=== PATIENT | male | born 1935 | race Caucasian/White ===

== ENCOUNTER 2018-09-13 11:03 | Emergency (ER) | payer OTHER ==
--- NOTE | 2018-09-13 12:14 | ER ---
Nurse's Notes [facility] Name: Samuel Oliva Age: 83 yrs Sex: Male : 1935 Arrival Date: 09/13/2018 Time: 11:05 Bed 16 Private MD: Nico Mejias V Diagnosis: Other bursitis of elbow, right elbow;Ulnar spur Presentation: 09/13 11:21 Presenting complaint: Patient states: pain to right elbow area since last Saturday, iw denies injury but states he was using a push mower before , feels like a pulled muscle, daughter also states pt had a bout of diarrhea, pt states those symptoms have resolved. 11:22 Transition of care: patient was not received from another setting of care. Onset of iw symptoms was September 08, 2018. Risk Assessment: Do you want to hurt yourself or someone else? Patient reports no desire to harm self or others. Initial Sepsis Screen: Does the patient meet any 2 criteria? No. Patient's initial sepsis screen is negative. Does the patient have a suspected source of infection? No. Patient's initial sepsis screen is negative. Care prior to arrival: None. 11:22 Method Of Arrival: Ambulatory iw 11:22 Acuity: GIANNI 4 iw Historical: - Allergies: 11:25 No Known Allergies; iw - Home Meds: 11:25 None [Active]; iw - PSHx: 11:25 Knee surgery; Heart stents; iw - Immunization history:: Adult Immunizations not up to date. - Social history:: Smoking status: Patient/guardian denies using tobacco. - Ebola Screening: : Patient negative for fever greater than or equal to 101.5 degrees Fahrenheit, and additional compatible Ebola Virus Disease symptoms Patient denies exposure to infectious person Patient denies travel to an Ebola-affected area in the 21 days before illness onset No symptoms or risks identified at this time. Screenin:00 Abuse screen: Denies threats or abuse. Denies injuries from another. Nutritional jl7 screening: No deficits noted. Tuberculosis screening: No symptoms or risk factors identified. Fall Risk None identified. Assessment: 12:00 General: Appears in no apparent distress. uncomfortable, Behavior is calm, cooperative, jl7 appropriate for age. Pain: Complains of pain in right elbow Pain currently is 3 out of 10 on a pain scale. Pain began 1 week ago. Neuro: Level of Consciousness is awake, alert, obeys commands, Oriented to person, place, time, situation. Cardiovascular: Patient's skin is warm and dry. Respiratory: Airway is patent Respiratory effort is even, unlabored, Respiratory pattern is regular, symmetrical. GI: Patient currently denies diarrhea, nausea, vomiting. : No signs and/or symptoms were reported regarding the genitourinary system. EENT: No signs and/or symptoms were reported regarding the EENT system. Derm: Skin is pink, warm \T\ dry. Musculoskeletal: Range of motion: limited in right elbow. Vital Signs: 11:25 BP 182 / 85; Pulse 89; Resp 16; Temp 97.6; Pulse Ox 96% on R/A; Weight 83.91 kg; Height iw 5 ft. 6 in. (167.64 cm); Pain 3/10; 12:31 BP 163 / 88; Pulse 77; Resp 16 S; Pulse Ox 96% on R/A; jl7 11:25 Body Mass Index 29.86 (83.91 kg, 167.64 cm) iw ED Course: 11:05 Patient arrived in ED. as 11:06 Nico Mejias MD is Private Physician. as 11:23 Triage completed. iw 11:25 Arm band placed on. iw 11:30 [facility] snw 11:30 Alexsander Hay MD is Attending Physician. snw 11:56 Hola Burns, KLEBER is Primary Nurse. jl7 12:00 Patient has correct armband on for positive identification. Bed in low position. Call jl7 light in reach. Side rails up X 1. Pulse ox on. NIBP on. 12:04 Elbow Right 3 View XRAY In Process Unspecified. EDMS 12:12 Nico Mejias MD is Referral Physician. snw 12:32 No provider procedures requiring assistance completed. Patient did not have IV access jl7 during this emergency room visit. Administered Medications: 12:10 Drug: [place] 5 mg-325 mg 1 tabs Route: PO; jl7 12:28 Follow up: Response: No adverse reaction; Medication administered at discharge. jl7 12:10 Drug: Zofran 4 mg Route: PO; jl7 12:28 Follow up: Response: No adverse reaction; Medication administered at discharge. jl7 Outcome: 12:13 Discharge ordered by MD. boogie 12:32 Discharged to home ambulatory, with family. jl7 12:32 Condition: stable 12:32 Discharge instructions given to patient, family, Instructed on discharge instructions, follow up and referral plans. medication usage, Demonstrated understanding of instructions, follow-up care, medications, Prescriptions given X 1. 12:32 Patient left the ED. jl7 Signatures: Dispatcher [employer] EDNY Sadia Arevalo, WELLFIELD TECHNICIAN-C WELLFIELD TECHNICIAN-Lyly Roberts Irene, RN RN Hola Carnes RN RN jl7 Corrections: (The following items were deleted from the chart) 11:23 11:21 Presenting complaint: Patient states: pain to right elbow area since last Saturday roger duran
--- NOTE | 2018-09-13 12:14 | EDPHYS ---
Physician Documentation [facility] Name: Samuel Oliva Age: 83 yrs Sex: Male : 1935 Arrival Date: 09/13/2018 Time: 11:05 Bed 16 Private MD: Nico Mejias V ED Physician Alexsander Hay HPI: 09/13 11:56 This 83 yrs old Male presents to ER via Ambulatory with complaints of Arm snw Pain, Diarrhea. 11:56 The patient or guardian complains of decreased range of motion, pain, that is acute. snw The complaints affect the right elbow. Context: The problem was sustained at an unknown location, resulted from repetitive motion sweeping with push broom. Onset: The symptoms/episode began/occurred gradually, 1 week(s) ago, and became persistent. Modifying factors: The symptoms are alleviated by remaining still. Associated signs and symptoms: The patient has no apparent associated signs or symptoms. Severity of symptoms: At their worst the symptoms were moderate. The patient has experienced similar episodes in the past, multiple times. The patient has not recently seen a physician. Historical: - Allergies: 11:25 No Known Allergies; iw - Home Meds: 11:25 None [Active]; iw - PSHx: 11:25 Knee surgery; Heart stents; iw - Immunization history:: Adult Immunizations not up to date. - Social history:: Smoking status: Patient/guardian denies using tobacco. - Ebola Screening: : Patient negative for fever greater than or equal to 101.5 degrees Fahrenheit, and additional compatible Ebola Virus Disease symptoms Patient denies exposure to infectious person Patient denies travel to an Ebola-affected area in the 21 days before illness onset No symptoms or risks identified at this time. ROS: 11:56 Constitutional: Negative for fever, chills, and weight loss, Eyes: Negative for injury, snw pain, redness, and discharge, ENT: Negative for injury, pain, and discharge, Neck: Negative for injury, pain, and swelling, Cardiovascular: Negative for chest pain, palpitations, and edema, Respiratory: Negative for shortness of breath, cough, wheezing, and pleuritic chest pain, Back: Negative for injury and pain, : Negative for injury, bleeding, discharge, and swelling, Skin: Negative for injury, rash, and discoloration, Neuro: Negative for headache, weakness, numbness, tingling, and seizure, Psych: Negative for depression, anxiety, suicide ideation, homicidal ideation, and hallucinations. 11:56 Abdomen/GI: Positive for stomach virus a few weeks ago - resolved per Patient. 11:56 MS/extremity: Positive for decreased range of motion, pain, of the right elbow. Exam: 11:51 Constitutional: This is a well developed, well nourished patient who is awake, alert, snw and in no acute distress. Head/Face: Normocephalic, atraumatic. Eyes: Pupils equal round and reactive to light, extra-ocular motions intact. Lids and lashes normal. Conjunctiva and sclera are non-icteric and not injected. Cornea within normal limits. Periorbital areas with no swelling, redness, or edema. ENT: Nares patent. No nasal discharge, no septal abnormalities noted. Tympanic membranes are normal and external auditory canals are clear. Oropharynx with no redness, swelling, or masses, exudates, or evidence of obstruction, uvula midline. Mucous membranes moist. Neck: Trachea midline, no thyromegaly or masses palpated, and no cervical lymphadenopathy. Supple, full range of motion without nuchal rigidity, or vertebral point tenderness. No Meningismus. Chest/axilla: Normal chest wall appearance and motion. Nontender with no deformity. No lesions are appreciated. Cardiovascular: Regular rate and rhythm with a normal S1 and S2. No gallops, murmurs, or rubs. Normal PMI, no JVD. No pulse deficits. Respiratory: Lungs have equal breath sounds bilaterally, clear to auscultation and percussion. No rales, rhonchi or wheezes noted. No increased work of breathing, no retractions or nasal flaring. Abdomen/GI: Soft, non-tender, with normal bowel sounds. No distension or tympany. No guarding or rebound. No evidence of tenderness throughout. Back: No spinal tenderness. No costovertebral tenderness. Full range of motion. Skin: Warm, dry with normal turgor. Normal color with no rashes, no lesions, and no evidence of cellulitis. Neuro: Awake and alert, GCS 15, oriented to person, place, time, and situation. Cranial nerves II-XII grossly intact. Motor strength 5/5 in all extremities. Sensory grossly intact. Cerebellar exam normal. Normal gait. Psych: Awake, alert, with orientation to person, place and time. Behavior, mood, and affect are within normal limits. 11:51 Musculoskeletal/extremity: Extremities: grossly normal except: ROM: limited active range of motion due to pain, limited passive range of motion due to pain, Circulation is intact in all extremities. Sensation intact. Vital Signs: 11:25 BP 182 / 85; Pulse 89; Resp 16; Temp 97.6; Pulse Ox 96% on R/A; Weight 83.91 kg; Height iw 5 ft. 6 in. (167.64 cm); Pain 3/10; 12:31 BP 163 / 88; Pulse 77; Resp 16 S; Pulse Ox 96% on R/A; jl7 11:25 Body Mass Index 29.86 (83.91 kg, 167.64 cm) iw MDM: 11:30 Patient medically screened. snw 12:28 Data reviewed: vital signs, nurses notes. Data interpreted: Pulse oximetry: on room air snw is 96 %. Interpretation: acceptable. Counseling: I had a detailed discussion with the patient and/or guardian regarding: the historical points, exam findings, and any diagnostic results supporting the discharge/admit diagnosis, radiology results, the need for outpatient follow up, to return to the emergency department if symptoms worsen or persist or if there are any questions or concerns that arise at home. Special discussion: Based on the history and exam findings, there is no indication for further emergent testing or inpatient evaluation. I discussed with the patient/guardian the need to see the orthopedic surgeon for further evaluation of the symptoms. I discussed with the patient/guardian the need to see the primary care provider for further evaluation of the symptoms. 09/13 11:43 Order name: Elbow Right 3 View XRAY; Complete Time: 12:28 snw Administered Medications: 12:10 Drug: [place] 5 mg-325 mg 1 tabs Route: PO; jl7 12:28 Follow up: Response: No adverse reaction; Medication administered at discharge. jl7 12:10 Drug: Zofran 4 mg Route: PO; jl7 12:28 Follow up: Response: No adverse reaction; Medication administered at discharge. jl7 Disposition: 13:07 Co-signature as Attending Physician, Alexsander Hay MD. rn Disposition: 09/13/18 12:13 Discharged to Home. Impression: Other bursitis of elbow, right elbow, Ulnar spur. - Condition is Stable. - Discharge Instructions: Bursitis, Repetitive Strain Injuries, Heat Therapy. - Prescriptions for Voltaren 1 % Topical gel - apply 2 gram by TOPICAL route 4 times per day; 50 gram. - Medication Reconciliation Form, Thank You Letter, Antibiotic Education, Prescription Opioid Use form. - Follow up: Nico Mejias MD; When: 2 - 3 days; Reason: Recheck today's complaints, Continuance of care, Re-evaluation by your physician. Follow up: Emergency Department; When: As needed; Reason: Worsening of condition. Signatures: Dispatcher [employer] EDMS Sadia Arevalo, KYLE-C LAND MANAGEMENT FORESTER-[address], RN Alexsander Mcgrath MD MD rn Leal, Jahala, RN RN jl7 Corrections: (The following items were deleted from the chart) 12:32 12:13 09/13/2018 12:13 Discharged to Home. Impression: Other bursitis of elbow, right jl7 elbow; Ulnar spur. Condition is Stable. Forms are Medication Reconciliation Form, Thank You Letter, Antibiotic Education, Prescription Opioid Use. Follow up: Nico Mejias; When: 2 - 3 days; Reason: Recheck today's complaints, Continuance of care, Re-evaluation by your physician. Follow up: Emergency Department; When: As needed; Reason: Worsening of condition. snw
[2018-09-13] MEDS ORDERED: HYDROCODONE/APAP 5/325 MG TAB ONE (12:17)
[2018-09-13] MEDS ORDERED: ONDANSETRON 4 MG (ODT) TAB ONE (12:17)
--- NOTE | 2018-09-13 12:22 | RAD REPORT ---
EXAM DESCRIPTION: RAD - Elbow Right 3 View - 09/13/2018 12:04 pm CLINICAL HISTORY: Elbow pain FINDINGS: No fracture or dislocation seen. Large spur extends off of the olecranon. A joint effusion is present. This could be inflammatory, infectious or posttraumatic in should be co rrelated clinically
[2018-09-13 12:37] VITALS: TEMP 97.6; O2SAT 96
[2018-09-13 12:39] VITALS: BP 163/88
== END 2018-09-13 12:32 | disposition home or self-care (01) ==
LOC: ER 11:03
DX: M25.521 Pain in right elbow (principal); R19.7 Diarrhea, unspecified; M71.521 Other bursitis, not elsewhere classified, right elbow; M77.9 Enthesopathy, unspecified
CPT/HCPCS: 99284

== ENCOUNTER 2021-05-16 11:20 | Emergency (ER) | payer OTHER ==
--- OUTSIDE RECORDS SUMMARY | 2021-05-16 11:23 | XMS REPORT | Continuity of Care Document ---
:1935 Author Organization [facility] t Address [address] [place] [address] Care Team Providers Name Role Phone ANDRES, Felipe Attending Clinician Unavailable ALLIE RODNEY Attending Clinician Unavailable Andres EMERSON, A Attending Clinician Only, Test Attending Clinician Unavailable Pob, Lab Main Attending Clinician Unavailable Doctor Unassigned, Name Attending Clinician Unavailable ANDRES, Felipe Admitting Clinician Unavailable Andres EMERSON, A Admitting Clinician Payers Payer Name Policy Type Policy Number Effective Date Expiration Date S bijal MEDICARE PART A [id number] 1999 \T\ B 00:00:00 [employer] INDEMNITY [id number] 2000 00:00:00 Problems This patient has no known problems. Allergies, Adverse Reactions, Alerts Allergy Allergy Status Severity Reaction(s) Onset Inactive Treating Comm ents Source Name Type Date Date Clinician NO KNOWN Drug Active Univers ALLERGIE Class ity of S [facility] Social History Social Habit Start Date Stop Date Quantity Comments Source Exposure to Not sure [facility] SARS-CoV-2 (event) Medica l Branch Tobacco use and 2020-06-16 2020-06-16 Never used [facility] exposure 00:00:00 00:00:00 Medical [place] Sex Assigned At [birth year] [facility] 00:00:00 00:00:00 Medical Branch Smoking Status Start Date Stop Date Source Unknown if ever smoked [facility] Never smoker [facility] Medications Ordered Filled Start Stop Current Ordering Indication Dosage Frequency Signature Comments Components Source Medication Medication Date Date Medication? Clinician (SIG) Name Name hydralAZINE 2020- No 10mg 10 mg, Uni vers (APRESOLINE 3-03 03- Slow IV ity of ) injection 19:00[place] 17[place] 10 [place] 00 :00 ONCE, 1 Medical dose, [facility] 07/20/20 at 1300, STAT, PACU
In dication: Hypertensi ve Emergency in atorvastati Yes Take by Un damien n calcium 3-03 mouth. ity of (LIPITOR 18:28: [place] ORAL) [address] [place] [address] LISINOPRIL Yes Take by Uni vers ORAL 3-03 mouth. ity of 18:28: [address] aspirin 81 Yes 81mg Take 81 mg U nivers mg chewable 03 by mouth ity of tablet 18:28: daily. [address] atorvastati Yes Take by Un damien n calcium 3-03 mouth. ity of (LIPITOR 18:28: [place] ORAL) [address] [place] [address] LISINOPRIL Yes Take by Uni vers ORAL 3-03 mouth. ity of 18:28: [address] aspirin 81 Yes 81mg Take 81 mg U nivers mg chewable -03 by mouth ity of tablet 18:28: daily. [address] water for Yes PRN, Univers irrigation 3-03 Starting ity o f irrigation 17:19: Sat07/20/20 [place] solution 00 at 1119, Medical Until [place] Discontinu ed, Routine, Intra-op sodium Yes PRN, Univers chloride 3-03 Starting ity of (NS) 17:19: Sat07/20/20 [place] injection 00 at 1119, Medica l Until Branch Discontinu ed, Routine, Intra-op neomycin-po Yes PRN, Univer s lymyxin-dex 3-03 Starting ity of amethasone 17:19: Sat07/20/20 [place] (MAXITROL) 00 at 1119, Medic al 3.5 Until [place] mg/g-10,000 Discontinu unit/g-0.1 ed, % Routine, ophthalmic Intra-op ointment gentamicin Yes PRN, Univers injection -03 Starting ity of 17:18: Sat07/20/20 [place] 00 at 1118, Medical Until Branch Discontinu ed, MIMI, Intra-op EPINEPHrine Yes PRN, Univer s 1:1,000 (1 07-20 Starting ity o f mg/mL) 17:18: Sat07/20/20 [place] (ADRENALIN) 00 at 1118, Medi abdias injection Until Branch Discontinu ed, Routine, Intra-op DUOVISC Yes PRN, Univers (DUOVISC 07-20 Starting ity of VISCO 17:18: Sat07/20/20 [place] ELASTIC) 3 00 at 1118, Medic al %-4 %(0.5 Until Branch mL) 1 % Discontinu (0.55 mL) ed, intraocular Routine, injection Intra-op dexamethaso Yes PRN, Univer s ne 07-20 Starting ity of (DECADRON 17:18: Sat07/20/20 [place] PHOSPHATE) 00 at 1118, Medic al injection Until Branch Discontinu ed, Routine, Intra-op ceFAZolin Yes PRN, Univers (ANCEF) 07-20 Starting ity of injection 17:16: Sat07/20/[place] 00 [place] 1116, Medical Until Branch Discontinu ed, MIMI, Intra-op carbachoL Yes PRN, Univers (MIOSTAT) 303 Starting ity of 0.01 % 17:16: Sat07/20/20 [place] intraocular 00 at 1116, Medi abdias injection Until Branch Discontinu ed, Routine, Intra-op balanced Yes PRN, Univers salt irrig 03 Starting ity o f soln comb1 17:16: Sat07/20/20 [place] (BSS PLUS) 00 at 1116, Medic al ophthalmic Until Branch solution Discontinu 500 mL bag ed, Routine, Intra-op Hyaluronida Yes PRN, Univer s se, Human 303 Starting ity of Recomb. 17:04: Sat07/20/20 [place] (HYLENEX) 00 at 1104, Medica l injection Until Branch Discontinu ed, Routine, Intra-op eye block 2021-0 Yes PRN, Univers syringe 11 3-03 Starting ity o f mL 17:04: 07/20/20 [place] 00 at 1104, Medical Until Branch Discontinu ed, Intra-op mydriatic 2020- No .5mL 0.5 mL, Univ ers #5 07-20 Left Eye, ity of ophthalmic 15:45: 15:58 ONCE, 1 [place] solution 00 :00 dose, [facility] Medica l 0.5 mL 07/20/20 at [place] syringe 0945, Routine, DSU Pre-op lactated 2020- No 1000mL at 42 [facility] rs ringers IV 07-20 0303 mL/hr, ity of infusion 15:45: 15:58 1,000 mL, [place] 1,000 mL 00 :00 IV Medical Infusion, [place] ONCE, 1 dose, 07/20/20 at 0945, Routine, DSU Pre-op aspirin 81 Yes 81mg Take 81 mg U nivers mg chewable 27 by mouth ity of tablet 19:31: daily. [address] atorvastati Yes Take by Un damien n calcium 27 mouth. ity of (LIPITOR 19:31: [address] LISINOPRIL Yes Take by Uni vers ORAL 06-15 mouth. ity of 19:31: [address] lactated Yes 1000mL at 42 [facility] s ringers IV 1-27 mL/hr, ity of infusion 16:45: 1,000 [place] 1,000 mL 00 IV Medical Infusion, [place] CONTINUOUS , Starting 06/15/20 at 1045, Until Discontinu ed, Routine, PACU neomycin-po Yes PRN, [facility] lymyxin-dex 06-15 Starting ity of amethasone 16:26: Sat [place] (MAXITROL) 06/15/20 at [facility] 35 [address] mg/g-10,000 Until unit/g-0.1 Discontinu % ed, ophthalmic Routine, ointment Intra-op gentamicin 0 Yes PRN, Univers injection 06-15 Starting ity of 16:25: Wed [place] 06/15/20 at [facility] 1025, Branch Until Discontinu ed, MIMI, Intra-op dexamethaso Yes PRN, Univer s ne 06-15 Starting ity of (DECADRON 16:25: Sat [place] PHOSPHATE) 06/15/20 at [facility] ical injection 1025, Branch Until Discontinu ed, Routine, Intra-op ceFAZolin Yes PRN, Univers (ANCEF) 06-15 Starting ity of injection 16:25: Sat06/15/20 at [facility] 1025, Branch Until Discontinu ed, MIMI, Intra-op water for Yes PRN, Univers irrigation 06-15 Starting ity o f irrigation 16:22: Sat [place] solution 06/15/20 at [facility] al 1022, Branch Until Discontinu ed, Routine, Intra-op sodium Yes PRN, Univers chloride 06-15 Starting ity of (NS) 16:22: Sat [place] injection 06/15/20 at [facility] 1022, Branch Until Discontinu ed, Routine, Intra-op eye block Yes PRN, Univers syringe 11 06-15 Starting ity o f mL 16:20: Sat [place] 00 06/15/20 at [facility] 1020, Branch Until Discontinu ed, Intra-op EPINEPHrine Yes PRN, Univer s 1:1,000 (1 06-15 Starting ity o f mg/mL) 16:20: Sat [place] (ADRENALIN) 00 06/15/20 at Ut dical injection 1020, Branch Until Discontinu ed, Routine, Intra-op DUOVISC Yes PRN, Univers (DUOVISC 06-15 Starting ity of VISCO 16:20: Sat [place] ELASTIC) 3 00 06/15/20 at [facility] ical %-4 %(0.5 1020, Branch mL) 1 % Until (0.55 mL) Discontinu intraocular ed, injection Routine, Intra-op carbachoL Yes PRN, Univers (MIOSTAT) 06-15 Starting ity of 0.01 % 16:19: Sat [place] intraocular 00 06/15/20 at Ut dical injection 1019, Branch Until Discontinu ed, Routine, Intra-op balanced Yes PRN, Univers salt irrig 06-15 Starting ity o f soln comb1 16:19: Sat (BSS PLUS) 00 06/15/20 at Med ical ophthalmic 1019, Branch solution Until 500 mL bag Discontinu ed, Routine, Intra-op Hyaluronida 2020- Yes PRN, [place] s se, Human 06-15 Starting ity of Recomb. 16:05: Sat [place] (HYLENEX) 06/15/20 at [facility] abdias injection 1005, Branch Until Discontinu ed, Routine, Intra-op Vital Signs Vital Name Observation Time Observation Value Comments Source Systolic blood 2020-07-20 18:09:00 186 mm[Hg] Univer sity of [facility] Diastolic blood 2020-07-20 18:09:00 82 mm[Hg] Unive rsity of [facility] Heart rate 2020-07-20 18:09:00 59 /min Universi ty [facility] Respiratory rate 2020-07-20 18:09:00 16 /min [facility] Oxygen saturation in 2020-07-20 18:09:00 98 /min University of Arterial blood by [facility] Pulse oximetry Branch Body temperature 2020-07-20 17:37:00 36.33 Karyn [facility] [place] [facility] Body height 2020-07-13 15:40:00 167.6 cm [facility] Body weight 2020-07-13 15:40:[address] [facility] BMI 2020-07-13 15:40:00 30.69 kg/m2 [facility] Systolic blood 2020-06-15 16:53:00 189 mm[Hg] Univer sity of [facility] Branch Diastolic blood 2020-06-15 16:53:00 79 mm[Hg] Unive rsity of [facility] Heart rate 2020-06-15 16:53:00 56 /min [facility] Respiratory rate 2020-06-15 16:53:00 16 /min [facility] [place] [facility] Oxygen saturation in 2020-06-15 16:53:00 95 /min University of Arterial blood by [facility] Pulse oximetry Branch Body temperature 2020-06-15 16:39:00 36.11 Karyn [facility] [place] [facility] Body height 2020-06-14 18:30:[address] [facility] Body weight 2020-06-14 18:30:[address] [facility] BMI 2020-06-14 18:30:00 30.67 kg/m2 [facility] Procedures Procedure Date / Time Performing Clinician Source Performed COVID-19 (ID NOW RAPID 2020-07-18 18:31:00 Aristides Lai Un [facility] TESTING) Medical Branch LAB ONLY COVID 2020-07-18 18:31:00 Aristides Lai [facility] INTERPRETATION [facility] Branch CONSENT/REFUSAL FOR 2020-07-18 18:02:39 [facility] DIAGNOSIS AND TREATMENT [place] [facility] ASSIGNMENT OF BENEFITS 2020-07-18 18:02:20 [facility] [place] [facility] ASSIGNMENT OF BENEFITS 2020-06-10 17:09:52 [facility] [place] [facility] Encounters Start End Encounter Admission Attending Care Care Encounter Source Date/Time Date/Time Type Type Clinicians Facility Department ID 2021-03-19 [id number] Univers 01:01:18 ARISTIDES [facility] [place] [facility] 2021-03-18 [facility] [id number] Univers 22:32:06 [facility] 2021-03-18 [facility] [id number] Univers 18:51:57 [facility] 2020-10-12 2020-10-12 Outpatient HERNAN RODNEY [facility] [id number] [facility] 08:53:00 11:45:00 JOEL 2020-09-07 2020-09-07 [facility] [id number] Univers 09:00:00 09:00:00 ARISTIDES [id number] [facility] 2020-09-07 2020-09-07 [facility] [id number] Univers 00:00:00 00:00:00 ARISTIDES [facility] [place] [facility] 2020-07-20 2020-07-20 Hospital [facility] [id number] Univers 09:23:00 12:27:00 Encounter Aristides Baker [id number] ity [place] [id number] [place] [id number] [address] 2020-07-18 2020-07-18 Laboratory Only, Adc Test [facility] [id number] Univers 12:03:41 12:18:41 Only Aristides Lai [id number] 0 [id number] [id number] [address] 2020-07-18 2020-07-18 Outpatient R [facility] [id number] Univers 10:15:00 10:15:00 [id number] [facility] [place] [facility] 2020-07-18 2020-07-18 [facility] [id number] Univers 10:15:00 10:15:00 ARISTIDES [facility] [place] [facility] 2020-07-04 2020-07-04 [facility] [id number] Univers 09:15:00 09:15:00 ARISTIDES [facility] [place] [facility] 2020-06-15 2020-06-15 [facility] [id number] Univers 07:58:00 11:27:00 Encounter Aristides Baker [id number] [id number] [id number] [address] 2020-06-14 2020-06-14 Laboratory Only, Adc Test [facility] [id number] Univers 08:57:56 09:12:56 Only Aristides Lai [id number] 0 [id number] [place] [id number] [address] 2020-06-14 2020-06-14 Outpatient R ANDRES [facility] [id number] Univers 09:00:00 09:00:00 ARISTIDES [id number] [facility] [place] [facility] 2020-06-14 2020-06-14 [facility] [id number] Univers 09:00:00 09:00:[address] [facility] 2020-06-10 2020-06-10 Vacuum Caster Cecilia, Zo Lab Main [facility] [id number] [facility] 11:09:43 11:24:43 Visit AndresAristides Mutual [id number] 0 ity [place] [id number] [place] [id number] Ut dical [address] 2020-06-10 2020-06-10 Outpatient R ANDRES [facility] [id number] [facility] 10:15:00 10:15:[address] [facility] 2020-06-10 2020-06-10 Orders Doctor THONG [id number] 90 [facility] 00:00:00 00:00:00 Only Unassigned, MAHESH [id number] [place] [facility] [id number] [place] [id number] [address] Results Test Description Test Time Test Comments Results Result Sour e Comments LAB ONLY COVID COVID DMT [facility] 3 [place]Inte [place] Medical 21:11:00 rpretation/Recomme Branch ndations: Molecular NAAT Tests for Active Infection with the SARS-CoV-2 Virus: The patient has currently tested negative for the SARS-CoV-2 virus that causes COVID-19 illness. This most likely indicates that the patient does not have an active infection with the SARS-CoV-2 virus. However, infection is not completely ruled out as the false negative rate for molecular NAAT testing using a nasopharyngeal sample can be up to 30%, mostly dependent on the timing of sample collection in relation to illness onset and any deficiencies in sampling techniques. If the patient has symptoms concerning for COVID-19 illness, a repeat NAAT test (PCR, Rapid ID Now, etc.) should be performed, at which time the SARS-CoV-2 virus - if present - may have reached a detectable viral load (usually peaking by the end of the first week of symptoms). Tests for IgM and/or IgG Antibodies to the SARS-CoV-2 Virus: If the patient develops COVID-19 illness in the future, testing for IgM and IgG antibodies approximately 3 weeks after illness onset will likely indicate if the patient has produced antibodies to the SARS-CoV-2 virus. However, some patients may take longer to develop detectable antibodies, while some patients who were infected with SARS-CoV-2 may never develop antibodies. While antibodies to SARS-CoV-2 may provide some degree of immunity, at this time the strength and duration of the antibody response is unknown. Interpretation Result Comments:These interpretation comments are based upon all COVID-19 testing the patient has had at [facility], including molecular NAAT testing (more commonly known as PCR testing and Rapid ID Now testing) and antibody testing. It does not take into account any testing that a patient has had outside of the [facility] medical record. [facility] LABORATORY SERVICESCOVID [id number] Rapid ID NOW (no units) ? ? Date ? Value ? 07/18/2020 ? Not Detected ? ? ? 06/14/2020 ? Not Detected ? [facility] LABORATORY SERVICES COVID-19 (ID NOW RAPID TESTING) 2020-07-18 18:53:00 Test Item Value Reference Range Interpretation Comme nts SARS-CoV-2 Rapid ID NOW (test code Not Detected Not Detected = 03762-0) CARYN (test code = ACRYN) ID NOW COVID-19 Assay is an isothermal nucleic acid amplification test intended for the qualitative detection of nucleic acid from SARS-CoV-2 viral RNA in nasopharyngeal (CAMERA REPAIR TECHNICIAN) specimens. It is used under Emergency Use Authorization (EUA) by FDA. The limit of detection (LOD) of the assay is 125 Genome Equivalents/mL. A positive result is indicative of the presence of SARS-CoV-2 RNA. ?Clinical correlation with patient history and other diagnostic information is necessary to determine patient infection status. A negative (Not Detected) result does not preclude SARS-CoV-2 infection. In patients with clinical symptoms and other tests that are consistent with SARS-CoV-2 infection, negative results should be treated as presumptive negative and a new specimen should be tested with alternative PCR molecular test. Invalid: Please collect a new specimen for repeat patient testing if clinically indicated. Lab Interpretation (test code = Normal 07601-9) [facility]
--- NOTE | 2021-05-16 12:26 | RAD REPORT ---
EXAM DESCRIPTION: RAD - Chest Single View - 05/16/2021 12:00 pm CLINICAL HISTORY: CHEST PAIN Chest pain. COMPARISON: Chest Pa And Lat (2 Views) dated 09/05/2020; CHEST SINGLE VIEW dated 07/17/2015; CHEST SIN GLE VIEW dated 07/16/2015; CHEST SINGLE VIEW dated 06/27/2012 FINDINGS: Portable technique limits examination quality. The lungs are grossly clear. The heart is mildly enlarged in size. No displaced fractures. IMPRESSION: No acute intrathoracic process suspected.
[2021-05-16 12:31] LABS: Absolute Lymphocytes (CBC) 1.2 K/uL (0.7-4.9); Hematocrit 42.3 % (39.6-49.0); Lymphocytes % 14.6 % (15.3-44.8); MPV 7.8 fL (7.6-11.3); Protime INR 1.01; RBC Red Blood Cell Count 4.82 M/uL (4.33-5.43)
[2021-05-16 12:49] LABS: Albumin 3.2 g/dL (3.4-5.0); Bilirubin Direct 0.1 mg/dL (0-0.2); Bilirubin Total 0.4 mg/dL (0.2-1.0); Magnesium 2.1 mg/dL (1.8-2.4); Potassium 3.8 mmol/L (3.5-5.1); Protein, Total 7.4 g/dL (6.4-8.2); Troponin (Emerg Dept Use Only) 0.12 ng/mL (0.0-0.045)
--- NOTE | 2021-05-16 13:10 | EDPHYS ---
Physician Documentation [facility] Name: Samuel Oilva Age: 85 yrs Sex: Male : 1935 Arrival Date: 05/16/2021 Time: 11:31 Bed 14 Private MD: ED Physician Maldonado Ames HPI: 05/16 13:09 This 85 yrs old Male presents to ER via EMS with complaints of Chest Pain. kdr 13:10 The patient has had intermittent chest pain for the last 2 days. Yesterday evening fix kdr himself some green tea when he had a chest discomfort and the pain went away. Today he had 2 baby aspirin with the pain in his subsequently went away again. On arrival in the ED, the patient was without any pain and was otherwise stable. He stated that with the chest discomfort he had radiation into both arms, shortness of breath, nausea.. Historical: - Allergies: 11:52 No Known Allergies; ap3 - Home Meds: 11:52 None [Active]; ap3 - PMHx: 11:52 Myocardial infarction; ap3 - Immunization history:: Client reports having NOT received the Covid vaccine. - Social history:: Smoking status: Patient denies any tobacco usage or history of. ROS: 13:10 Constitutional: Negative for fever, chills, and weight loss, Eyes: Negative for injury, kdr pain, redness, and discharge, ENT: Negative for injury, pain, and discharge, Neck: Negative for injury, pain, and swelling, Respiratory: Negative for shortness of breath, cough, wheezing, and pleuritic chest pain, Abdomen/GI: Negative for abdominal pain, nausea, vomiting, diarrhea, and constipation, Back: Negative for injury and pain, : Negative for injury, bleeding, discharge, and swelling, MS/Extremity: Negative for injury and deformity, Skin: Negative for injury, rash, and discoloration, Neuro: Negative for headache, weakness, numbness, tingling, and seizure activity. Psych: Negative for depression, anxiety, suicide ideation, homicidal ideation, and hallucinations, Allergy/Immunology: Negative for hives, rash, and allergies, Endocrine: Negative for neck swelling, polydipsia, polyuria, polyphagia, and marked weight changes, Hematologic/Lymphatic: Negative for swollen nodes, abnormal bleeding, and unusual bruising. 13:10 Cardiovascular: Positive for chest pain, Negative for edema, orthopnea, palpitations, paroxysmal nocturnal dyspnea. Exam: 11:43 ECG was reviewed by the Attending Physician. kdr 13:10 Constitutional: This is a well developed, well nourished patient who is awake, alert, kdr and in no acute distress. Head/Face: Normocephalic, atraumatic. Eyes: Pupils equal round and reactive to light, extra-ocular motions intact. Lids and lashes normal. Conjunctiva and sclera are non-icteric and not injected. Cornea within normal limits. Periorbital areas with no swelling, redness, or edema. Neck: Trachea midline, no thyromegaly or masses palpated, and no cervical lymphadenopathy. Supple, full range of motion without nuchal rigidity, or vertebral point tenderness. No Meningismus. Chest/axilla: Normal chest wall appearance and motion. Nontender with no deformity. No lesions are appreciated. Cardiovascular: Regular rate and rhythm with a normal S1 and S2. No gallops, murmurs, or rubs. Normal PMI, no JVD. No pulse deficits. Respiratory: Lungs have equal breath sounds bilaterally, clear to auscultation and percussion. No rales, rhonchi or wheezes noted. No increased work of breathing, no retractions or nasal flaring. Abdomen/GI: Soft, non-tender, with normal bowel sounds. No distension or tympany. No guarding or rebound. No evidence of tenderness throughout. Back: No spinal tenderness. No costovertebral tenderness. Full range of motion. Skin: Warm, dry with normal turgor. Normal color with no rashes, no lesions, and no evidence of cellulitis. MS/ Extremity: Pulses equal, no cyanosis. Neurovascular intact. Full, normal range of motion. Neuro: Awake and alert, GCS 15, oriented to person, place, time, and situation. Cranial nerves II-XII grossly intact. Motor strength 5/5 in all extremities. Sensory grossly intact. Cerebellar exam normal. Normal gait. Psych: Awake, alert, with orientation to person, place and time. Behavior, mood, and affect are within normal limits. Vital Signs: 11:51 BP 161 / 90; Pulse 85; Resp 17; Temp 98.3(O); Pulse Ox 99% on R/A; Weight 86.18 kg; ap3 Height 5 ft. 6 in. (167.64 cm); Pain 2/10; 12:38 BP 146 / 81; Pulse 76; Pulse Ox 96% on R/A; ap3 14:05 BP 144 / 79; Pulse 64; Resp 17; Pulse Ox 94% on R/A; Pain 0/10; ap3 15:25 BP 146 / 89; Pulse 58; Pulse Ox 95% on R/A; ap3 17:57 BP 198 / 98; Pulse 74; Resp 18; Temp 98.6; Pulse Ox 98% on R/A; tm3 19:36 BP 215 / 87; Pulse 74; Resp 18; Pulse Ox 93% ; sm5 11:51 Body Mass Index 30.67 (86.18 kg, 167.64 cm) ap3 MDM: 13:09 Patient medically screened. kdr 13:10 Data reviewed: vital signs, nurses notes, lab test result(s), radiologic studies. kdr Counseling: I had a detailed discussion with the patient and/or guardian regarding: the historical points, exam findings, and any diagnostic results supporting the discharge/admit diagnosis, lab results, radiology results, the need for further work-up and treatment in the hospital. 05/16 11:34 Order name: Basic Metabolic Panel; Complete Time: 13:11 kdr 05/16 11:34 Order name: CBC with Diff; Complete Time: 13:12 kdr 05/16 11:34 Order name: LFT's; Complete Time: 13:12 kdr 05/16 11:34 Order name: Magnesium; Complete Time: 13:12 kdr 05/16 11:34 Order name: NT PRO-BNP; Complete Time: 13:12 kdr 05/16 11:34 Order name: PT-INR; Complete Time: 13:12 kdr 05/16 11:34 Order name: Troponin (emerg Dept Use Only); Complete Time: 13:12 kdr 05/16 11:34 Order name: XRAY Chest (1 view); Complete Time: 13:12 kdr 05/16 11:34 Order name: EKG; Complete Time: 11:35 kdr 05/16 13:15 Order name: Troponin (emerg Dept Use Only) kdr 05/16 13:16 Order name: Troponin (Emerg Dept Use Only); Complete Time: 15:28 EDMS 05/16 15:11 Order name: COVID-19 SARS RT PCR (Document "Date of Onset" if Symptomatic); Complete dh4 Time: 18:20 05/16 11:34 Order name: Cardiac monitoring; Complete Time: 11:39 kdr 05/16 11:34 Order name: EKG - Nurse/Tech; Complete Time: 11:39 kdr 05/16 11:34 Order name: IV Saline Lock; Complete Time: 11:39 kdr 05/16 11:34 Order name: Labs collected and sent; Complete Time: 12:11 kdr 05/16 11:34 Order name: O2 Per Protocol; Complete Time: 11:39 kdr 05/16 11:34 Order name: O2 Sat Monitoring; Complete Time: 11:39 kdr EC:43 Rate is 88 beats/min. Rhythm is regular, Sinus Rhythm with No ectopy. QRS Emerson is kdr Normal. NH interval is normal. QRS interval is normal. QT interval is normal. Clinical impression: NSR w/ Non-specific ST/T Changes. Administered Medications: 13:26 Not Given (Physician Discretion): Aspirin Chewable Tablet 324 mg PO once; 81 mg tablets ap3 x 4 13:33 Drug: Lovenox (enoxaparin) 1 mg/kg Route: Sub-Q; Site: abdomen; ap3 13:54 Follow up: Response: No adverse reaction ap3 Disposition Summary: 05/16/21 15:31 Transfer Ordered Transfer Location: [facility] kdr Reason: Higher level of care kdr Condition: Fair(05/16/21 15:31) kdr Problem: new(05/16/21 15:31) kdr Symptoms: have improved(05/16/21 15:31) kdr Accepting Physician: Brittany(05/16/21 19:58) 5 Diagnosis - Subsequent non-ST elevation (NSTEMI) myocardial infarction(05/16/21 15:31) kdr - Chest pain, unspecified(05/16/21 15:31) kdr Forms: - Medication Reconciliation Form kdr - SBAR form kdr Signatures: Dispatcher [employer] EDMS Maldonado Ames MD MD kdr Sheila Ly RN RN ap3 Yajaira Richmond RN RN sm5 Corrections: (The following items were deleted from the chart) 15:30 13:09 Inpatient Admission kdr kdr 15:30 13:09 Nico Mejias kdr kdr 15:30 13:09 Telemetry/MedSurg (Inpatient) kdr kdr 15:30 13:09 Fair kdr kdr 15:30 13:09 new kdr kdr 15:30 13:09 are resolved kdr kdr 15:30 13:09 Standard kdr kdr 15:30 13:09 kdr kdr 15:30 13:09 Subsequent non-ST elevation (NSTEMI) myocardial infarction kdr kdr 15:30 13:09 Chest pain, unspecified kdr kdr 15:31 15:31 Brittany kdr kdr 19:58 15:31 Brittany kdr sm5
--- NOTE | 2021-05-16 13:10 | ER ---
Nurse's Notes [facility] Name: Samuel Oliva Age: 85 yrs Sex: Male : 1935 Arrival Date: 05/16/2021 Time: 11:31 Bed 14 Private MD: Diagnosis: Subsequent non-ST elevation (NSTEMI) myocardial infarction;Chest pain, unspecified Presentation: 05/16 11:39 Chief complaint: EMS states: they were called out for a patient with chest pain. ap3 Patient reports that the pain isn't as severe as it was yesterday, but it is just not going away. Coronavirus screen: At this time, the client does not indicate any symptoms associated with coronavirus-19. Ebola Screen: No symptoms or risks identified at this time. Initial Sepsis Screen: Does the patient meet any 2 criteria? No. Patient's initial sepsis screen is negative. Does the patient have a suspected source of infection? No. Patient's initial sepsis screen is negative. Risk Assessment: Do you want to hurt yourself or someone else? Patient reports no desire to harm self or others. Onset of symptoms was May 16, 2021. 11:39 Method Of Arrival: EMS: [facility] ap3 11:51 Care prior to arrival: Medication(s) given: ASA, 325 mg, Nitroglycerin, x 3, zofran 4 ap3 mg. 11:51 Acuity: GIANNI 3 ap3 Triage Assessment: 11:42 General: Appears uncomfortable, Behavior is calm, cooperative. Pain: Complains of pain ap3 in chest Pain does not radiate. Pain currently is 4 out of 10 on a pain scale. Pain began 1 day ago. Also complains of nausea. Neuro: Level of Consciousness is awake, alert, obeys commands, Oriented to person, place, time, situation, Appropriate for age Speech is normal. Cardiovascular: Reports chest pain, nausea, Patient's skin is warm and dry. Respiratory: Airway is patent Respiratory effort is even, unlabored, Respiratory pattern is regular, symmetrical. Historical: - Allergies: 11:52 No Known Allergies; ap3 - Home Meds: 11:52 None [Active]; ap3 - PMHx: 11:52 Myocardial infarction; ap3 - Immunization history:: Client reports having NOT received the Covid vaccine. - Social history:: Smoking status: Patient denies any tobacco usage or history of. Screenin:53 Abuse screen: Denies threats or abuse. Nutritional screening: No deficits noted. ap3 Tuberculosis screening: No symptoms or risk factors identified. Fall Risk No fall in past 12 months (0 pts). No secondary diagnosis (0 pts). IV access (20 points). Ambulatory Aid- None/Bed Rest/Nurse Assist (0 pts). Gait- Weak (10 pts.). Mental Status- Oriented to own ability (0 pts). Total Dangelo Fall Scale indicates Low Risk Score (25-44 pts). Fall prevention measures have been instituted. Side Rails Up X 2 Placed close to Nursing Station Frequent Obs/Assesments occuring Family Present and informed to notify staff if they need to leave bedside As available Patient and Family Educated on Fall Prevention Program and strategies. Assessment: 14:05 Reassessment: Patient and/or family updated on plan of care and expected duration. Pain ap3 level reassessed. Patient is alert, oriented x 3, equal unlabored respirations, skin warm/dry/pink. Patient states symptoms have improved. 15:25 Reassessment: No changes from previously documented assessment. Patient and/or family ap3 updated on plan of care and expected duration. Pain level reassessed. 19:53 General: Appears in no apparent distress. Behavior is calm, cooperative. Pain: Denies sm5 pain. Pain:. Neuro: No deficits noted. Level of Consciousness is awake, alert, Oriented to person, place, time, situation. Cardiovascular: No deficits noted. Capillary refill < 3 seconds Patient's skin is warm and dry. Respiratory: No deficits noted. Airway is patent Trachea midline Respiratory effort is even, unlabored. Vital Signs: 11:51 BP 161 / 90; Pulse 85; Resp 17; Temp 98.3(O); Pulse Ox 99% on R/A; Weight 86.18 kg; ap3 Height 5 ft. 6 in. (167.64 cm); Pain 2/10; 12:38 BP 146 / 81; Pulse 76; Pulse Ox 96% on R/A; ap3 14:05 BP 144 / 79; Pulse 64; Resp 17; Pulse Ox 94% on R/A; Pain 0/10; ap3 15:25 BP 146 / 89; Pulse 58; Pulse Ox 95% on R/A; ap3 17:57 BP 198 / 98; Pulse 74; Resp 18; Temp 98.6; Pulse Ox 98% on R/A; tm3 19:36 BP 215 / 87; Pulse 74; Resp 18; Pulse Ox 93% ; sm5 11:51 Body Mass Index 30.67 (86.18 kg, 167.64 cm) ap3 ED Course: 11:31 Patient arrived in ED. ds1 11:33 Maldonado Ames MD is Attending Physician. kdr 11:39 Sheila Ly RN is Primary Nurse. ap3 11:43 Maintain EMS IV. Dressing intact. Good blood return noted. Site clean \T\ dry. Gauge \T\ ap 3 site: 20g. Patient maintains SpO2 saturation greater than 95% on room air. 11:44 Patient has correct armband on for positive identification. Bed in low position. Call ap3 light in reach. Side rails up X2. Adult w/ patient. regulatory product manager on. Pulse ox on. NIBP on. Door closed. Noise minimized. 11:52 Triage completed. ap3 11:53 Arm band placed on right wrist. EKG completed in triage. Results shown to MD. ap3 12:00 XRAY Chest (1 view) In Process Unspecified. EDMS 12:12 Inserted saline lock: 20 gauge in left antecubital area, using aseptic technique. Blood ap3 collected. 12:13 Pt visited by son. ap3 13:08 Nico Mejias MD is Hospitalizing Provider. kdr 13:53 Repeat lab(s) drawn. by me, sent to lab. ap3 15:24 COVID swab sent to lab. ap3 16:49 No provider procedures requiring assistance completed. Patient transferred, IV remains ll1 in place. Administered Medications: 13:26 Not Given (Physician Discretion): Aspirin Chewable Tablet 324 mg PO once; 81 mg tablets ap3 x 4 13:33 Drug: Lovenox (enoxaparin) 1 mg/kg Route: Sub-Q; Site: abdomen; ap3 13:54 Follow up: Response: No adverse reaction ap3 Outcome: 13:09 Decision to Hospitalize by Provider. kdr 15:31 ER care complete, transfer ordered by . kdr 16:50 Transferred to [facility], Transfer form completed. Note: report ll1 given to Darling Barboza RN. 16:50 Condition: stable 19:58 Patient left the ED. sm5 Signatures: Dispatcher [employer] EDMS Sharan Fry3 Maldonado Ames MD MD kdr Sanford, Demi ds1 Prokisch, Amanda RN RN ap3 Edy Cuellar RN RN ll1 Yajaira Richmond RN RN 5
[2021-05-16] MEDS ORDERED: ENOXAPARIN 100 MG/ML SYR SQ ONE (13:29)
[2021-05-16 20:10] VITALS: TEMP 98.6
[2021-05-16 20:12] VITALS: BP 215/87; O2SAT 93
== END 2021-05-16 19:58 | disposition short-term general hospital (02) ==
LOC: ER 11:20
DX: I22.2 Subsequent non-ST elevation (NSTEMI) myocardial infarction (principal); I21.9 Acute myocardial infarction, unspecified; Z20.822 Contact with and (suspected) exposure to COVID-19
CPT/HCPCS: 93005; 85025; 80048; 36415; 83735; 85610; 80076; 84484 ×2; 83880; 71045; 96372; 99285; U0003; J1650

== ENCOUNTER 2021-07-26 11:18 | Emergency (ER) | payer OTHER ==
--- OUTSIDE RECORDS SUMMARY | 2021-07-26 11:22 | XMS REPORT | Continuity of Care Document ---
:1935 Author Organization [facility] t Address [address] [place] [address] Care Team Providers Name Role Phone Jama LAI Attending Clinician Unavailable Attending Clinician Unavailable Jerome PARKER Attending Clinician Unavailable ALLIE RODNEY Attending Clinician Unavailable Andres EMERSON, A Attending Clinician Only, Test Attending Clinician Unavailable Pob, Lab Main Attending Clinician Unavailable Doctor Unassigned, Name Attending Clinician Unavailable Jama LAI Admitting Clinician Unavailable SANTANA MALIK Admitting Clinician Unavailable Andres EMERSON, A Admitting Clinician Payers Payer Name Policy Type Policy Number Effective Date Expiration Date S bijal MEDICARE PART A [id number] 1999 \T\ B 00:00:00 [employer] INDEMNITY [id number] 2000 00:00:00 MEDICARE A B [id number] 1999 00:00:00 Problems This patient has no known problems. Allergies, Adverse Reactions, Alerts Allergy Allergy Status Severity Reaction(s) Onset Inactive Treating Comm ents Source Name Type Date Date Clinician NO KNOWN Allergy Active [facility] NO KNOWN Drug Active [facility] ALLERGIE [facility] ity of S [place] Medical [facility] Social History Social Habit Start Date Stop Date Quantity Comments Source Exposure to Not sure [facility] SARS-CoV-2 (event) Medica l Branch Tobacco use and 2020-06-16 2020-06-16 [facility]:00 Medical Branch Sex Assigned At [birth year] [facility] 00:00:00 00:00:00 [facility] Smoking Status Start Date Stop Date Source Unknown if ever smoked [facility] Never smoker [facility] Medications Ordered Filled Start Stop Current Ordering Indication Dosage Frequency Signature Comments Components Source Medication Medication Date Date Medication? Clinician (SIG) Name Name hydralAZINE No 10mg 10 mg, Uni vers (APRESOLINE 3-03 03-03 Slow IV ity of ) injection 19:00: 17:58 [place] 10 mg 00 :00 ONCE, 1 Medical dose, [facility] Branch 07/20/20 at 1300, STAT, PACU
In dication: Hypertensi ve Emergency in atorvastati Yes Take by Un damien n calcium 3-03 mouth. ity of (LIPITOR 18:28: [place] [address] LISINOPRIL Yes Take by Uni vers ORAL 3-03 mouth. ity of 18:28: [address] aspirin 81 Yes 81mg Take 81 mg U nivers mg chewable 03 by mouth ity of tablet 18:28: daily. [address] atorvastati Yes Take by Un damien n calcium 3-03 mouth. ity of (LIPITOR 18:28: [place] ORAL) [address] [place] [address] LISINOPRIL Yes Take by Uni vers ORAL 3-03 mouth. ity of 18:28: [address] aspirin 81 Yes 81mg Take 81 mg U nivers mg chewable 3-03 by mouth ity of tablet 18:28: daily. [address] water for Yes PRN, Univers irrigation 3-03 Starting ity o f irrigation 17:19: Sat07/20/20 [place] solution 00 at 1119, Medical Until Branch Discontinu ed, Routine, Intra-op sodium Yes PRN, Univers chloride 3-03 Starting ity of (NS) 17:19: Sat07/20/20 [place] injection 00 at 1119, Medica l Until Branch Discontinu ed, Routine, Intra-op neomycin-po Yes PRN, Univer s lymyxin-dex 07-20 Starting ity of amethasone 17:19: 07/20/20 [place] (MAXITROL) 00 at 1119, Medic al 3.5 Until Branch mg/g-10,000 Discontinu unit/g-0.1 ed, % Routine, ophthalmic Intra-op ointment gentamicin Yes PRN, Univers injection 07-20 Starting ity of 17:18: 07/20/20 [place] 00 at 1118, Medical Until Branch [...] Routine, Intra-op ceFAZolin Yes PRN, Univers (ANCEF) 3 Starting ity of injection 17:16: [place]/20/20 [place] 00 [place] 1116, Medical Until Branch Discontinu ed, MIMI, Intra-op carbachoL Yes PRN, Univers (MIOSTAT) 07-20 Starting ity of 0.01 % 17:16: 07/20/20 [place] intraocular 00 at 1116, Medi abdias injection Until Branch Discontinu ed, Routine, Intra-op balanced Yes PRN, Univers salt irrig 07-20 Starting ity o f soln comb1 17:16: 07/20/20 [place] (BSS PLUS) 00 at 1116, Medic al ophthalmic Until Branch solution Discontinu 500 mL bag ed, Routine, Intra-op Hyaluronida Yes PRN, Univer s se, Human 3-03 Starting ity of Recomb. 17:04: 07/20/20 [place] (HYLENEX) 00 at 1104, Medica l injection Until [place] Discontinu ed, Routine, Intra-op eye block Yes PRN, Univers syringe 11 03 Starting ity o f mL 17:04: Sat07/20/20 [place] 00 at 1104, Medical Until [place] Discontinu ed, Intra-op mydriatic 2020- No .5mL 0.5 mL, Univ ers #5 07-20 0303 Left Eye, ity of ophthalmic 15:45: 15:58 ONCE, 1 [place] solution 00 :00 dose, Sat Medica l 0.5 mL 07/20/20 at Branch syringe 0945, Routine, DSU Pre-op lactated 2020- No 1000mL at 42 Unive rs ringers IV 07-20 03-03 mL/hr, ity of infusion 15:45: 15:58 1,000 mL, [place] 1,000 mL 00 :00 IV Medical Infusion, [place] ONCE, 1 dose, 07/20/20 at 0945, Routine, DSU Pre-op aspirin 81 Yes 81mg Take 81 mg U nivers mg chewable 27 by mouth ity of tablet 19:31: daily. [address] atorvastati Yes Take by Un damien n calcium - mouth. ity of (LIPITOR 19:31: [place] [address] LISINOPRIL Yes Take by Uni vers ORAL 06-15 mouth. ity of 19:31: [address] lactated Yes 1000mL at 42 [facility] s ringers IV 1-27 mL/hr, ity of infusion 16:45: 1,000 mL, [place] 1,000 mL 00 IV Medical Infusion, [place] CONTINUOUS , Starting Sat06/15/20 at 1045, Until Discontinu ed, Routine, PACU neomycin-po Yes PRN, [facility] lymyx[facility]-dex 06-15 Starting ity of amethasone 16:26: [facility] (MAXITROL) 00 06/15/20 at [facility] ical 3.5 1026, Branch mg/g-10,000 Until unit/g-0.1 Discontinu % ed, ophthalmic Routine, ointment Intra-op gentamicin Yes PRN, Univers injection 06-15 Starting ity of 16:25: Wed [place] 00 06/15/20 at [facility] 1025, [place] Until Discontinu ed, MIMI, Intra-op dexamethaso Yes PRN, Univer s ne 06-15 Starting ity of (DECADRON 16:25: Sat PHOSPHATE) 06/15/20 at [facility] ical injection 1025, [place] Until Discontinu ed, Routine, Intra-op ceFAZolin Yes PRN, Univers (ANCEF) 06-15 Starting ity of injection 16:25: Sat06/15/20 at [facility] 1025, [place] Until Discontinu ed, MIMI, Intra-op water for Yes PRN, Univers irrigation 06-15 Starting ity o f irrigation 16:22: Sat [place] solution 06/15/20 at [facility] 1022, [place] Until Discontinu ed, Routine, Intra-op sodium Yes PRN, Univers chloride 06-15 Starting ity of (NS) 16:22: Sat [place] injection 06/15/20 at [facility] 1022, [place] Until Discontinu ed, Routine, Intra-op eye block Yes PRN, Univers syringe 11 06-15 Starting ity o f mL 16:20: Sat [place] 00 06/15/20 at [facility] 1020, [place] Until Discontinu ed, Intra-op EPINEPHrine Yes PRN, Univer s 1:1,000 (06-15 Starting ity o f mg/mL) 16:20: Sat [place] (ADRENALIN) 06/15/20 at [place] dical injection 1020, [place] Until Discontinu ed, Routine, Intra-op DUOVISC Yes PRN, Univers (DUOVISC 06-15 Starting ity of VISCO 16:20: Sat [place] ELASTIC) 3 06/15/20 at [facility] ical %-4 %(0.5 1020, Branch mL) 1 % Until (0.55 mL) Discontinu intraocular ed, injection Routine, Intra-op carbachoL Yes PRN, Univers (MIOSTAT) 06-15 Starting ity of 0.01 % 16:19: Sat [place] intraocular 00 06/15/20 at [place] dical injection 1019, Branch Until Discontinu ed, Routine, Intra-op balanced Yes PRN, Univers salt irrig 06-15 Starting ity o f soln comb1 16:19: Sat [place] (BSS PLUS) 06/15/20 at [facility] ical ophthalmic 1019, Branch solution Until 500 mL bag Discontinu ed, Routine, Intra-op Hyaluronida Yes PRN, Univer s se, Human 06-15 Starting ity of Recomb. 16:05: Sat [place] (HYLENEX) 06/15/20 at [facility] injection 1005, Branch Until Discontinu ed, Routine, Intra-op Vital Signs Vital Name Observation Time Observation Value Comments Source WEIGHT 2021-05-21 07:30:00 85.2 kg WEIGHT 2021-05-16 21:28:00 87.272 kg HEIGHT 2021-05-16 21:28:00 167.6 cm WEIGHT 2021-05-21 07:30:00 85.2 kg WEIGHT 2021-05-16 21:28:00 87.272 kg HEIGHT 2021-05-16 21:28:00 167.6 cm Systolic blood 2020-07-20 18:09:00 186 mm[Hg] [facility] 2020-07-20 18:09:00 82 mm[Hg] [facility] Heart rate 2020-07-20 18:09:00 59 /min [facility] Respiratory rate 2020-07-20 18:09:00 16 /min [facility] Oxygen saturation in 2020-07-20 18:09:00 98 /min [facility] Arterial blood by [facility] Pulse oximetry Branch Body temperature 2020-07-20 17:37:00 36.33 Karyn [facility] Body height 2020-07-13 15:40:00 167.6 cm [facility] Body weight 2020-07-13 15:40:00 86.2 kg [facility] BMI 2020-07-13 15:40:00 30.69 kg/m2 [facility] Systolic blood 2020-06-15 16:53:00 189 mm[Hg] Univer sity of pressure [facility] Diastolic blood 2020-06-15 16:53:00 79 mm[Hg] Unive rsity of pressure [facility] Heart rate 2020-06-15 16:53:00 56 /min [facility] Respiratory rate 2020-06-15 16:53:00 16 /min [facility] Oxygen saturation in 2020-06-15 16:53:00 95 /min [facility] Arterial blood by [facility] Pulse oximetry Branch Body temperature 2020-06-15 16:39:00 36.11 Karyn [facility] Body height 2020-06-14 18:30:00 167.6 cm [facility] Body weight 2020-06-14 18:30:00 86.183 kg [facility] BMI 2020-06-14 18:30:00 30.67 kg/m2 [facility] Procedures Procedure Date / Time Performing Clinician Source Performed COVID-19 (ID NOW RAPID 2020-07-18 18:31:00 Aristides Lai Un [facility] TESTING) Medical Branch LAB ONLY COVID 2020-07-18 18:31:00 Aristides Lai [facility] INTERPRETATION [facility] CONSENT/REFUSAL FOR 2020-07-18 18:02:39 Doctor Unassigned, [facility] DIAGNOSIS AND TREATMENT [place] [facility] [place] ASSIGNMENT OF BENEFITS 2020-07-18 18:02:20 [facility] [place] [facility] ASSIGNMENT OF BENEFITS 2020-06-10 17:09:52 Doctor Unassigned, [facility] [place] [facility] Encounters Start End Encounter Admission Attending Care Care Encounter Source Date/Time Date/Time Type Type Clinicians Facility Department ID 2021-03-19 Outpatient Arely LAI [facility] RABIA [id number] Univers 01:01:18 ARISTIDES [facility] 2021-03-18 Outpatient ANDRES [facility] [id number] Univers 22:32:06 ARISTIDES [facility] 2021-03-18 Outpatient Arely LAI [facility] RABIA [id number] Univers 18:51:57 ARISTIDES [facility] 2021-05-16 2021-05-21 Inpatient ER , [facility] Cardiology [id number] SLE 20:58:00 12:08:00 MALIK 2021-05-16 2021-05-16 Outpatient [facility] [id number] [facility] 00:00:00 23:59:00 Mariano Medicin tiffanie 2020-10-12 2020-10-12 Outpatient RASHAUN MHFLYNN MHBL [id number] MHBL 08:53:00 11:45:00 JOEL 2020-09-07 2020-09-07 Outpatient Arely LAI [facility] [id number] Univers 09:00:00 09:00:00 ARISTIDES [id number] [facility] 2020-09-07 2020-09-07 [facility] [id number] Univers 00:00:00 00:00:00 ARISTIDES [facility] 2020-07-20 2020-07-[address] [facility] [id number] Univers 09:23:00 12:27:00 Encounter Aristides Baker [id number] ity of [place] [id number] [facility] [id number] [facility] 071 Branch 2020-07-18 2020-07-18 Laboratory Only, Adc Test [facility] [id number] Univers 12:03:41 12:18:41 Only Aristides Lai 350.1.13.1 0 [place] [id number] [id number] [place] [address] Branch 2020-07-18 2020-07-18 Outpatient R [facility] [id number] Univers 10:15:00 10:15:00 [id number] [facility] 2020-07-18 2020-07-18 Outpatient R ANDRES [facility] [id number] Univers 10:15:00 10:15:00 ARISTIDES rogelio [facility] 2020-07-04 2020-07-04 Outpatient Arely LAI [facility] [id number] Univers 09:15:00 09:15:00 ARISTIDES [facility] 2020-06-15 2020-06-15 Hospital Andres [facility] [id number] Univers 07:58:00 11:27:00 Encounter Aristides Yun [place] [id number] [place] [id number] [place] Surgical [id number] [facility] 071 [place] 2020-06-14 2020-06-14 Laboratory Only, [facility] Test [facility] [id number] Univers 08:57:56 09:12:56 Only Aristides Lai 350.1.13.1 0 [place] 4[place]2.[place].2.686 [place] [id number] [facility] 353 [place] 2020-06-14 2020-06-14 [facility] [id number] Univers 09:00:00 09:00:00 ARISTIDES [id number] rogelio [facility] 2020-06-14 2020-06-14 [facility] [id number] Univers 09:00:00 09:00:00 ARISTIDES rogelio [facility] 2020-06-10 2020-06-10 Fitting Room Supervisor Cecilia, [facility] Lab Main [facility] 1.2.8 [id number] Univers 11:09:43 11:24:43 Visit Aristides Lai 350.1.13.1 0 [place] [id number] Profess[place] [id number] [address] 2020-06-10 2020-06-10 [facility] [id number] Univers 10:15:00 10:15:00 ARISTIDES rogelio [facility] 2020-06-10 2020-06-10 Orders Doctor THONG [id number] Univers 00:00:00 00:00:00 Only UnassignedMAHESH 350.1.13.10 ity of [place] [facility] 4.2.7.2.686 [place] [id number] [address] Results Test Description Test Time Test Comments Results Result Comments Source POCT-GLUCOSE METER 2021-05-21 06:54:18 Test Item Value Reference Range Interpretation Comme nts POC-GLUCOSE METER (BEAKER) 123 mg/dL 70-110 H : TESTED AT [facility] [address] (test code = 1538) LETTY Krishnamurthy, [address]: Director Of Media/Techni barber ID = [id number] for SABA STAPLETON BASIC METABOLIC [id number] 06:23:05 Test Item Value Reference Range Interpretation Comments SODIUM (BEAKER) 137 meq/L 136-145 (test code = 381) POTASSIUM (BEAKER) 3.8 meq/L 3.5-5.1 (test code = 379) CHLORIDE (BEAKER) 104 meq/L 98-107 (test code = 382) CO2 (BEAKER) (test 23 meq/L 22-29 code = 355) BLOOD UREA NITROGEN 20 mg/dL 7-21 (BEAKER) (test code = 354) CREATININE (BEAKER) 1.25 mg/dL 0.57-1.25 (test code = 358) GLUCOSE RANDOM 127 mg/dL 70-105 H (BEAKER) (test code = 652) CALCIUM (BEAKER) 8.9 mg/dL 8.4-10.2 (test code = 697) EGFR (BEAKER) (test 55 mL/min/1.73 ESTIMA SEAN GFR IS code = 1092) sq m NOT ACCURATE CREATININE CLEARANCE IN PREDICTING GLOMERULAR FILTRATION RATE . ESTIMATED GFR I S NOT APPLICABLE FOR DIALYSIS PATIEN TS. Director Of Media ID - PIAYA LCBC (HEMOGRAM ONLY)2021-05-21 05:33:08 Test Item Value Reference Range Interpretation Comments WHITE BLOOD CELL COUNT 9.8 K/ L 3.5-10.5 (BEAKER) (test code = 775) RED BLOOD CELL COUNT 4.65 M/ L 4.63-6.08 (BEAKER) (test code = 761) HEMOGLOBIN (BEAKER) 13.6 GM/DL 13.7-17.5 L (test code = 410) HEMATOCRIT (BEAKER) 39.9 % 40.1-51.0 L (test code = 411) MEAN CORPUSCULAR 85.8 fL 79.0-92.2 Discordant result VOLUME (BEAKER) (test compar ed to previous code = 753) result. Clinica l correlation req uired MEAN CORPUSCULAR 29.2 pg 25.7-32.2 HEMOGLOBIN (BEAKER) (test code = 751) MEAN CORPUSCULAR 34.1 GM/DL 32.3-36.5 HEMOGLOBIN CONC (BEAKER) (test code = 752) RED CELL DISTRIBUTION 13.0 % 11.6-14.4 WIDTH (BEAKER) (test code = 412) PLATELET COUNT 282 K/CU MM 150-450 (BEAKER) (test code = 756) MEAN PLATELET VOLUME 9.6 fL 9.4-12.4 (BEAKER) (test code = 754) NUCLEATED RED BLOOD 0 /100 WBC 0-0 CELLS (BEAKER) (test code = 413) POCT-GLUCOSE [id number] 21:08:02 Test Item Value Reference Range Interpretation Comments POC-GLUCOSE METER 116 mg/dL 70-110 H : TESTED A T [facility] 67 ([facility]) (test code = [facility], 1538) [address]: Director Of Media/Techni barber ID = [id number] for PAULINA HARKINS [id number] 15:55:29 Test Item Value Reference Range Interpretation Comments ACTIVATED CLOTTING TIME 333 sec : 74 -137 seconds, (BEAKER) (test code = Baseli ne: TESTED AT 441) [facility] 6720 [facility], 770 30: Director Of Media/Techni barber ID = [id number] for CHRIS LAGUERRE [id number] 15:16:02 Test Item Value Reference Range Interpretation Comments ACTIVATED CLOTTING TIME 249 sec : 74 -137 seconds, (BEAKER) (test code = Baseli ne: TESTED AT 441) [address], 770 30: Director Of Media/Techni barber ID = [id number] for [place] SEE DONALDSONCEL BASIC METABOLIC [id number] 05:24:48 Test Item Value Reference Range Interpretation Comments SODIUM (BEAKER) 141 meq/L 136-145 (test code = 381) POTASSIUM (BEAKER) 4.0 meq/L 3.5-5.1 (test code = 379) CHLORIDE (BEAKER) 107 meq/L 98-107 (test code = 382) CO2 (BEAKER) (test 26 meq/L 22-29 code = 355) BLOOD UREA NITROGEN 24 mg/dL 7-21 H (BEAKER) (test code = 354) CREATININE (BEAKER) 1.42 mg/dL 0.57-1.25 H (test code = 358) GLUCOSE RANDOM 128 mg/dL 70-105 H (BEAKER) (test code = 652) CALCIUM (BEAKER) 9.0 mg/dL 8.4-10.2 (test code = 697) EGFR (BEAKER) (test 47 mL/min/1.73 ESTIMA SEAN GFR IS code = 1092) sq m NOT ACCURATE CREATININE CLEARANCE IN PREDICTING GLOMERULAR FILTRATION RATE . ESTIMATED GFR I S NOT APPLICABLE FOR DIALYSIS PATIEN TS. Director Of Media ID - FARHAD MCBC W/PLT COUNT & AUTO [id number] 04:57:30 Test Item Value Reference Range Interpretation Comments WHITE BLOOD CELL COUNT (BEAKER) 9.4 K/ L 3.5-10.5 (test code = 775) RED BLOOD CELL COUNT (BEAKER) 4.47 M/ L 4.63-6.08 L (test code = 761) HEMOGLOBIN (BEAKER) (test code = 13.1 GM/DL 13.7-17.5 L 410) HEMATOCRIT (BEAKER) (test code = 40.5 % 40.1-51.0 411) MEAN CORPUSCULAR VOLUME (BEAKER) 90.6 fL 79.0-92.2 (test code = 753) MEAN CORPUSCULAR HEMOGLOBIN 29.3 pg 25.7-32.2 (BEAKER) (test code = 751) MEAN CORPUSCULAR HEMOGLOBIN CONC 32.3 GM/DL 32.3-36.5 (BEAKER) (test code = 752) RED CELL DISTRIBUTION WIDTH 13.0 % 11.6-14.4 (BEAKER) (test code = 412) PLATELET COUNT (BEAKER) (test 294 K/CU MM 150-450 code = 756) MEAN PLATELET VOLUME (BEAKER) 9.9 fL 9.4-12.4 (test code = 754) NUCLEATED RED BLOOD CELLS 0 /100 WBC 0-0 (BEAKER) (test code = 413) NEUTROPHILS RELATIVE PERCENT 62 % (BEAKER) (test code = 429) LYMPHOCYTES RELATIVE PERCENT 26 % (BEAKER) (test code = 430) MONOCYTES RELATIVE PERCENT 8 % (BEAKER) (test code = 431) EOSINOPHILS RELATIVE PERCENT 3 % (BEAKER) (test code = 432) BASOPHILS RELATIVE PERCENT 1 % (BEAKER) (test code = 437) NEUTROPHILS ABSOLUTE COUNT 5.88 K/ L 1.78-5.38 H (BEAKER) (test code = 670) LYMPHOCYTES ABSOLUTE COUNT 2.41 K/ L 1.32-3.57 (BEAKER) (test code = 414) MONOCYTES ABSOLUTE COUNT (BEAKER) 0.79 K/ L 0.30-0.82 (test code = 415) EOSINOPHILS ABSOLUTE COUNT 0.24 K/ L 0.04-0.54 (BEAKER) (test code = 416) BASOPHILS ABSOLUTE COUNT (BEAKER) 0.06 K/ L 0.01-0.08 (test code = 417) IMMATURE GRANULOCYTES-RELATIVE 1 % 0-1 PERCENT (BEAKER) (test code = 2801) BASIC METABOLIC [id number] 06:11:45 Test Item Value Reference Range Interpretation Comments SODIUM (BEAKER) 140 meq/L 136-145 (test code = 381) POTASSIUM (BEAKER) 3.7 meq/L 3.5-5.1 Specimen slightly (test code = 379) hemolyzed CHLORIDE (BEAKER) 107 meq/L 98-107 (test code = 382) CO2 (BEAKER) (test 25 meq/L 22-29 code = 355) BLOOD UREA NITROGEN 20 mg/dL 7-21 (BEAKER) (test code = 354) CREATININE (BEAKER) 1.25 mg/dL 0.57-1.25 Specimen slightly (test code = 358) hemolyzed GLUCOSE RANDOM 130 mg/dL 70-105 H (BEAKER) (test code = 652) CALCIUM (BEAKER) 8.8 mg/dL 8.4-10.2 (test code = 697) EGFR (BEAKER) (test 55 mL/min/1.73 ESTIMA SEAN GFR IS code = 1092) sq m NOT ACCURATE CREATININE CLEARANCE IN PREDICTING GLOMERULAR FILTRATION RATE . ESTIMATED GFR I S NOT APPLICABLE FOR DIALYSIS PATIEN TS. Director Of Media ID - PIAYA LCBC W/PLT COUNT & AUTO [id number] 05:05:59 Test Item Value Reference Range Interpretation Comments WHITE BLOOD CELL COUNT (BEAKER) 8.5 K/ L 3.5-10.5 (test code = 775) RED BLOOD CELL COUNT (BEAKER) 4.69 M/ L 4.63-6.08 (test code = 761) HEMOGLOBIN (BEAKER) (test code = 13.7 GM/DL 13.7-17.5 410) HEMATOCRIT (BEAKER) (test code = 42.6 % 40.1-51.0 411) MEAN CORPUSCULAR VOLUME (BEAKER) 90.8 fL 79.0-92.2 (test code = 753) MEAN CORPUSCULAR HEMOGLOBIN 29.2 pg 25.7-32.2 (BEAKER) (test code = 751) MEAN CORPUSCULAR HEMOGLOBIN CONC 32.2 GM/DL 32.3-36.5 L (BEAKER) (test code = 752) RED CELL DISTRIBUTION WIDTH 13.1 % 11.6-14.4 (BEAKER) (test code = 412) PLATELET COUNT (BEAKER) (test 314 K/CU MM 150-450 code = 756) MEAN PLATELET VOLUME (BEAKER) 9.6 fL 9.4-12.4 (test code = 754) NUCLEATED RED BLOOD CELLS 0 /100 WBC 0-0 (BEAKER) (test code = 413) NEUTROPHILS RELATIVE PERCENT 60 % (BEAKER) (test code = 429) LYMPHOCYTES RELATIVE PERCENT 28 % (BEAKER) (test code = 430) MONOCYTES RELATIVE PERCENT 8 % (BEAKER) (test code = 431) EOSINOPHILS RELATIVE PERCENT 3 % (BEAKER) (test code = 432) BASOPHILS RELATIVE PERCENT 1 % (BEAKER) (test code = 437) NEUTROPHILS ABSOLUTE COUNT 5.04 K/ L 1.78-5.38 (BEAKER) (test code = 670) LYMPHOCYTES ABSOLUTE COUNT 2.38 K/ L 1.32-3.57 (BEAKER) (test code = 414) MONOCYTES ABSOLUTE COUNT (BEAKER) 0.68 K/ L 0.30-0.82 (test code = 415) EOSINOPHILS ABSOLUTE COUNT 0.27 K/ L 0.04-0.54 (BEAKER) (test code = 416) BASOPHILS ABSOLUTE COUNT (BEAKER) 0.05 K/ L 0.01-0.08 (test code = 417) IMMATURE GRANULOCYTES-RELATIVE 1 % 0-1 PERCENT (BEAKER) (test code = 2801) SARS-COV2/RT-PCR ([facility])2021-05-18 07:02:36 Test Item Value Reference Range Interpretation Comments SARS-COV2/RT-PCR Negative Negative The SARS-Co V-2 target (test code = nucleic acids a re not [id number]) detected in thi s specimen. Negative result s do not preclude SARS-C oV-2 infection and s hould not be used as the mary e basis for patient managem ent decisions. Nega tive results must be combine d with clinical observ ations, patient history , and epidemiological information. A false negativ e result may occur if a spec imen is improperly javid ected, transported or handled. This SARS CoV-2 test is a rapid, real-manpreet e RT-PCR test intended for th e qualitative detection of nu cleic acid from SARS-CoV-2 in a nasopharyngeal swab specimen collected from individuals suspected of CO VID-19 by their healthcar e provider. This test has been authorized by FDA under an EUA for use by authorized laboratories. This test is only authorized for the duration of the declaration that circumstances exist justifying the authorization of emergency use of in vitro diagnostic tests for detection and/or diagnosis of COVID-19 under Section 564(b)(1) of the Federal Food, Drug and Cosmetic Act, 21 U.S.C. 360bbb- 3(b)(1), unless the authorization is terminated or revoked sooner. Fact Sheet for Healthcare Providers: https://www.[employer]/Documents/Xpert%20Xpress%20SARS%20CoV-2/Fact%20Sheets/302-0962%20SARS-COV -2%20HEALTHCARE%20PROVIDERS%20FACT%20SHEET.pdf Fact Sheet for Healthcare Patients: https://www.[employer]/Documents/Xpert %20Xpress%20SARS%20CoV-2/Fact%20Sheets/3023801%64DHKH-YIP-1%20PATIENT%20FACT%20 SHEET.pdfBASIC METABOLIC [id number] 04:13:23 Test Item Value Reference Range Interpretation Comments SODIUM (BEAKER) 141 meq/L 136-145 (test code = 381) POTASSIUM (BEAKER) 3.8 meq/L 3.5-5.1 (test code = 379) CHLORIDE (BEAKER) 106 meq/L 98-107 (test code = 382) CO2 (BEAKER) (test 26 meq/L 22-29 code = 355) BLOOD UREA NITROGEN 21 mg/dL 7-21 (BEAKER) (test code = 354) CREATININE (BEAKER) 1.67 mg/dL 0.57-1.25 H (test code = 358) GLUCOSE RANDOM 161 mg/dL 70-105 H (BEAKER) (test code = 652) CALCIUM (BEAKER) 9.3 mg/dL 8.4-10.2 (test code = 697) EGFR (BEAKER) (test 39 mL/min/1.73 ESTIMA SEAN GFR IS code = 1092) sq m NOT ACCURATE CREATININE CLEARANCE IN PREDICTING GLOMERULAR FILTRATION RATE . ESTIMATED GFR I S NOT APPLICABLE FOR DIALYSIS PATIEN TS. Director Of Media ID - PIAYA LCBC W/PLT COUNT & AUTO [id number] 03:49:55 Test Item Value Reference Range Interpretation Comments WHITE BLOOD CELL COUNT (BEAKER) 9.5 K/ L 3.5-10.5 (test code = 775) RED BLOOD CELL COUNT (BEAKER) 4.74 M/ L 4.63-6.08 (test code = 761) HEMOGLOBIN (BEAKER) (test code = 14.0 GM/DL 13.7-17.5 410) HEMATOCRIT (BEAKER) (test code = 42.0 % 40.1-51.0 411) MEAN CORPUSCULAR VOLUME (BEAKER) 88.6 fL 79.0-92.2 (test code = 753) MEAN CORPUSCULAR HEMOGLOBIN 29.5 pg 25.7-32.2 (BEAKER) (test code = 751) MEAN CORPUSCULAR HEMOGLOBIN CONC 33.3 GM/DL 32.3-36.5 (BEAKER) (test code = 752) RED CELL DISTRIBUTION WIDTH 13.1 % 11.6-14.4 (BEAKER) (test code = 412) PLATELET COUNT (BEAKER) (test 312 K/CU MM 150-450 code = 756) MEAN PLATELET VOLUME (BEAKER) 9.6 fL 9.4-12.4 (test code = 754) NUCLEATED RED BLOOD CELLS 0 /100 WBC 0-0 (BEAKER) (test code = 413) NEUTROPHILS RELATIVE PERCENT 63 % (BEAKER) (test code = 429) LYMPHOCYTES RELATIVE PERCENT 24 % (BEAKER) (test code = 430) MONOCYTES RELATIVE PERCENT 9 % (BEAKER) (test code = 431) EOSINOPHILS RELATIVE PERCENT 3 % (BEAKER) (test code = 432) BASOPHILS RELATIVE PERCENT 1 % (BEAKER) (test code = 437) NEUTROPHILS ABSOLUTE COUNT 5.99 K/ L 1.78-5.38 H (BEAKER) (test code = 670) LYMPHOCYTES ABSOLUTE COUNT 2.22 K/ L 1.32-3.57 (BEAKER) (test code = 414) MONOCYTES ABSOLUTE COUNT (BEAKER) 0.89 K/ L 0.30-0.82 H (test code = 415) EOSINOPHILS ABSOLUTE COUNT 0.27 K/ L 0.04-0.54 (BEAKER) (test code = 416) BASOPHILS ABSOLUTE COUNT (BEAKER) 0.06 K/ L 0.01-0.08 (test code = 417) IMMATURE GRANULOCYTES-RELATIVE 0 % 0-1 PERCENT (BEAKER) (test code = 2801) HEMOGLOBIN [id number] 07:58:18 Test Item Value Reference Range Interpretation Comments HEMOGLOBIN A1C (BEAKER) (test code = 6.3 % 4.3-6.1 H 368) Director Of Media ID - [id number] SENSITIVITY TROPONIN [id number] 05:21:30 Test Item Value Reference Range Interpretation Comments HIGH SENSITIVITY 1704 pg/ml See_Comment HH [Automated message] TROPONIN I (test code The sy stem which = [id number]) generated this result transmitted ref erence range: <=35. Th e reference range was not used to int erpret this result as normal/abnormal . Director Of Media ID - PIAYA LThe SPECIAL DELIVERY MESSENGER STAT High Sensitivity Troponin-I results should be used in conjunction with other diagnostic information such as ECG, clinical observations and information, and patient symptoms to aid in the diagnosis of NV.LIPID [id number] 04:26:24 Test Item Value Reference Range Interpretation Comments TRIGLYCERIDES (BEAKER) (test code = 227 mg/dL 540) CHOLESTEROL (BEAKER) (test code = 224 mg/dL 631) HDL CHOLESTEROL (BEAKER) (test code 35 mg/dL = 976) LDL CHOLESTEROL CALCULATED (BEAKER) 144 mg/dL (test code = 633) Triglyceride Reference Range: Low Risk <150 Borderline 150-199 High Risk 200-499 Very High Risk >=500Cholesterol Reference Range: Low Risk <200 Borderline 200-239 High Risk >240HDL Cholesterol Reference Range: Low Risk >=60 High Risk <40LDL Cholesterol Reference Range: Optimal <100 Near Optimal 100-129 Borderline 130-159 High 160-189 Very High >=190 Director Of Media ID - PIAYALBASIC METABOLIC [id number] 04:26:23 Test Item Value Reference Range Interpretation Comments SODIUM (BEAKER) 142 meq/L 136-145 (test code = 381) POTASSIUM (BEAKER) 5.0 meq/L 3.5-5.1 (test code = 379) CHLORIDE (BEAKER) 105 meq/L 98-107 (test code = 382) CO2 (BEAKER) (test 29 meq/L 22-29 code = 355) BLOOD UREA NITROGEN 13 mg/dL 7-21 (BEAKER) (test code = 354) CREATININE (BEAKER) 1.32 mg/dL 0.57-1.25 H (test code = 358) GLUCOSE RANDOM 142 mg/dL 70-105 H (BEAKER) (test code = 652) CALCIUM (BEAKER) 9.4 mg/dL 8.4-10.2 (test code = 697) EGFR (BEAKER) (test 51 mL/min/1.73 ESTIMA SEAN GFR IS code = 1092) sq m NOT ACCURATE CREATININE CLEARANCE IN PREDICTING GLOMERULAR FILTRATION RATE . ESTIMATED GFR I S NOT APPLICABLE FOR DIALYSIS PATIEN TS. Director Of Media ID - PIAYA LCBC W/PLT COUNT & AUTO [id number] 04:08:40 Test Item Value Reference Range Interpretation Comments WHITE BLOOD CELL COUNT (BEAKER) 11.6 K/ L 3.5-10.5 H (test code = 775) RED BLOOD CELL COUNT (BEAKER) 5.07 M/ L 4.63-6.08 (test code = 761) HEMOGLOBIN (BEAKER) (test code = 14.8 GM/DL 13.7-17.5 410) HEMATOCRIT (BEAKER) (test code = 45.8 % 40.1-51.0 411) MEAN CORPUSCULAR VOLUME (BEAKER) 90.3 fL 79.0-92.2 (test code = 753) MEAN CORPUSCULAR HEMOGLOBIN 29.2 pg 25.7-32.2 (BEAKER) (test code = 751) MEAN CORPUSCULAR HEMOGLOBIN CONC 32.3 GM/DL 32.3-36.5 (BEAKER) (test code = 752) RED CELL DISTRIBUTION WIDTH 13.2 % 11.6-14.4 (BEAKER) (test code = 412) PLATELET COUNT (BEAKER) (test 311 K/CU MM 150-450 code = 756) MEAN PLATELET VOLUME (BEAKER) 9.5 fL 9.4-12.4 (test code = 754) NUCLEATED RED BLOOD CELLS 0 /100 WBC 0-0 (BEAKER) (test code = 413) NEUTROPHILS RELATIVE PERCENT 64 % (BEAKER) (test code = 429) LYMPHOCYTES RELATIVE PERCENT 25 % (BEAKER) (test code = 430) MONOCYTES RELATIVE PERCENT 8 % (BEAKER) (test code = 431) EOSINOPHILS RELATIVE PERCENT 2 % (BEAKER) (test code = 432) BASOPHILS RELATIVE PERCENT 1 % (BEAKER) (test code = 437) NEUTROPHILS ABSOLUTE COUNT 7.42 K/ L 1.78-5.38 H (BEAKER) (test code = 670) LYMPHOCYTES ABSOLUTE COUNT 2.85 K/ L 1.32-3.57 (BEAKER) (test code = 414) MONOCYTES ABSOLUTE COUNT (BEAKER) 0.90 K/ L 0.30-0.82 H (test code = 415) EOSINOPHILS ABSOLUTE COUNT 0.27 K/ L 0.04-0.54 (BEAKER) (test code = 416) BASOPHILS ABSOLUTE COUNT (BEAKER) 0.08 K/ L 0.01-0.08 (test code = 417) IMMATURE GRANULOCYTES-RELATIVE 1 % 0-1 PERCENT (BEAKER) (test code = 2801) HIGH SENSITIVITY TROPONIN [id number] 00:22:16 Test Item Value Reference Range Interpretation Comments HIGH SENSITIVITY 2395 pg/ml See_Comment HH [Automated message] TROPONIN I (test code The stem which = [id number]) generated this result transmitted ref erence range: <=35. Th e reference range was not used to int erpret this result as normal/abnormal . Director Of Media MARANDA DILLON LThe SPECIAL DELIVERY MESSENGER STAT High Sensitivity Troponin-I results should be used in conjunction with other diagnostic information such as ECG, clinical observations and information, and patient symptoms to aid in the diagnosis of NV.Director Of Media MARANDA DILLON LCBC W/PLT COUNT & AUTO DIFFERENTIAL 2021-05-16 22:55:38 Test Item Value Reference Range Interpretation Comments WHITE BLOOD CELL COUNT (BEAKER) 10.9 K/ L 3.5-10.5 H (test code = 775) RED BLOOD CELL COUNT (BEAKER) 5.07 M/ L 4.63-6.08 (test code = 761) HEMOGLOBIN (BEAKER) (test code = 15.0 GM/DL 13.7-17.5 410) HEMATOCRIT (BEAKER) (test code = 45.7 % 40.1-51.0 411) MEAN CORPUSCULAR VOLUME (BEAKER) 90.1 fL 79.0-92.2 (test code = 753) MEAN CORPUSCULAR HEMOGLOBIN 29.6 pg 25.7-32.2 (BEAKER) (test code = 751) MEAN CORPUSCULAR HEMOGLOBIN CONC 32.8 GM/DL 32.3-36.5 (BEAKER) (test code = 752) RED CELL DISTRIBUTION WIDTH 12.9 % 11.6-14.4 (BEAKER) (test code = 412) PLATELET COUNT (BEAKER) (test 334 K/CU MM 150-450 code = 756) MEAN PLATELET VOLUME (BEAKER) 9.4 fL 9.4-12.4 (test code = 754) NUCLEATED RED BLOOD CELLS 0 /100 WBC 0-0 (BEAKER) (test code = 413) NEUTROPHILS RELATIVE PERCENT 69 % (BEAKER) (test code = 429) LYMPHOCYTES RELATIVE PERCENT 21 % (BEAKER) (test code = 430) MONOCYTES RELATIVE PERCENT 7 % (BEAKER) (test code = 431) EOSINOPHILS RELATIVE PERCENT 2 % (BEAKER) (test code = 432) BASOPHILS RELATIVE PERCENT 1 % (BEAKER) (test code = 437) NEUTROPHILS ABSOLUTE COUNT 7.46 K/ L 1.78-5.38 H (BEAKER) (test code = 670) LYMPHOCYTES ABSOLUTE COUNT 2.31 K/ L 1.32-3.57 (BEAKER) (test code = 414) MONOCYTES ABSOLUTE COUNT (BEAKER) 0.77 K/ L 0.30-0.82 (test code = 415) EOSINOPHILS ABSOLUTE COUNT 0.20 K/ L 0.04-0.54 (BEAKER) (test code = 416) BASOPHILS ABSOLUTE COUNT (BEAKER) 0.07 K/ L 0.01-0.08 (test code = 417) IMMATURE GRANULOCYTES-RELATIVE 1 % 0-1 PERCENT (BEAKER) (test code = 2801) LAB ONLY COVID [id number] 21:11:00COVID DMT InterpretationInterpretation/Recommendations: Molecular NAAT Tests for Active Infection with [...] week of symptoms). Tests for IgM and/or IgGAntibodies to the SARS-CoV-2 Virus: If the patient develops COVID-19 illness in the future, testingfor IgM and IgG antibodies approximately 3 weeks [...] COVID-19 testing the patient has had at [facility], including molecular NAAT testing (more commonly known as PCR testing and Rapid ID Now testing) and antibody testing. It does not take into account any testing that a patient has had outside of the [facility] medical record. [facility] LABORATORY SERVICESCOVID Resul [id number] Rapid ID NOW (no units) ? ? Date ? Value ? 07/18/2020 ? Not Detected ? ? ? 06/14/2020 ? Not Detected ? [facility] (ID NOW RAPID TESTING)2020-07-18 18:53:00 Test Item Value Reference Range Interpretation Comments SARS-CoV-2 Rapid ID NOW Not Detected Not Detected (test code = 77290-6) CARYN (test code = CARYN) ID NOW COVID-19 Assay is an isothermal nucleic acid amplification test intended for the qualitative detection of nucleic acid from SARS-CoV-2 viral RNA in nasopharyngeal (OUT PATIENT THERAPIST) specimens. It is used under Emergency Use [...] patient testing if clinically indicated. Lab Interpretation Normal (test code = 07931-4) [facility]
[2021-07-26] MEDS ORDERED: HYDRALAZINE HCL 20 MG/ML VIAL ONE (12:05)
--- NOTE | 2021-07-26 12:25 | RAD REPORT ---
EXAM DESCRIPTION: CT - Head C Spine Mpr Wo Con - 07/26/2021 11:48 am CLINICAL HISTORY: Head and neck injury status post fall. Head and neck pain COMPARISON: None. TECHNIQUE: Computed axial tomography of the head and cervical spine was obtained. Sagittal and coronal reconstruction was performed. All CT scans are performed using dose optimization technique as appropriate and may include automated exposure control or mA/KV adjustment according to patient size. FINDINGS: An intracranial bleed is not seen. The ventricles are normal in caliber. An extra-axial fl uid collection is not noted.Fluid within the visualized sinuses and mastoids is not seen A cervical fracture is not visualized. No dislocation is noted. IMPRESSION: No acute intracranial abnormality is seen. A cervical fracture is not visualized. If the patient continues to have symptoms to suggest intracra nial /spinal cord pathology then MRI would be recommended
--- NOTE | 2021-07-26 13:59 | ER ---
Nurse's Notes [facility] Name: Samuel Oliva Age: 86 yrs Sex: Male : 1935 Arrival Date: 07/26/2021 Time: 11:21 Bed 5 Private MD: Diagnosis: Unspecified injury of head, initial encounter Presentation: 07/26 11:22 Chief complaint: EMS states: [place] hit the let side of his ap3 forehead. Patient has a lac on left forehead that is wrapped in a bandage. Patient denies LOC. Coronavirus screen: Vaccine status: Patient reports being unvaccinated. Ebola Screen: No symptoms or risks identified at this time. Initial Sepsis Screen: Does the patient meet any 2 criteria? No. Patient's initial sepsis screen is negative. Does the patient have a suspected source of infection? No. Patient's initial sepsis screen is negative. Risk Assessment: Do you want to hurt yourself or someone else? Patient reports no desire to harm self or others. Onset of symptoms was July 26, 2021. 11:22 Method Of Arrival: EMS: [facility] ap3 11:22 Acuity: GIANNI 3 ap3 Triage Assessment: 11:27 General: Appears in no apparent distress. Behavior is calm, cooperative, agitated. ap3 Pain: Complains of pain in forehead. Neuro: Level of Consciousness is awake, alert, obeys commands, Oriented to person, place, time, situation. Cardiovascular: Patient's skin is warm and dry. Respiratory: Airway is patent Respiratory effort is even, unlabored. Derm: Wound noted forehead. Musculoskeletal:. Injury Description: fall from standing off curb. Historical: - Allergies: 11:26 No Known Allergies; ap3 - PMHx: 11:26 Myocardial infarction; Hypertensive disorder; ap3 - Immunization history:: Adult Immunizations not immunized. - Social history:: Smoking status: Patient denies any tobacco usage or history of. Screenin:29 Abuse screen: Denies threats or abuse. Nutritional screening: No deficits noted. ap3 Tuberculosis screening: No symptoms or risk factors identified. Fall Risk Fall in past 12 months (25 points). No secondary diagnosis (0 pts). IV access (20 points). Ambulatory Aid- None/Bed Rest/Nurse Assist (0 pts). Gait- Weak (10 pts.). Mental Status- Oriented to own ability (0 pts). Total Dangelo Fall Scale indicates High Risk Score (45 or more points). Fall prevention measures have been instituted. Side Rails Up X 2 Placed Close to Nursing Station Frequent Obs/Assessments Occuring As available patient and family educated on Fall Prevention Program and Strategies. Assessment: 11:25 General: Appears in no apparent distress. comfortable, Behavior is calm, cooperative. vg1 Pain: Complains of pain in forehead Pain currently is 5 out of 10 on a pain scale. Pain began 1 hour ago. Neuro: Level of Consciousness is awake, alert, obeys commands, Oriented to person, place, time, situation, Reports headache Denies blurred vision dizziness, photophobia. Cardiovascular: Patient's skin is warm and dry. Respiratory: Airway is patent Respiratory effort is even, unlabored. GI: No signs and/or symptoms were reported involving the gastrointestinal system. : No signs and/or symptoms were reported regarding the genitourinary system. EENT: Derm: Skin laceration to forehead. Musculoskeletal: Circulation, motion, and sensation intact. 13:23 Reassessment: Patient and/or family updated on plan of care and expected duration. Pain ap3 level reassessed. Patient is alert, oriented x 3, equal unlabored respirations, skin warm/dry/pink. 14:17 Reassessment: awaiting sons arrival prior to patients discharge. ap3 Vital Signs: 11:22 BP 178 / 98; Pulse 62; Resp 17; Temp 97.8; Pulse Ox 99% ; Weight 77.11 kg; Height 5 ft. ap3 6 in. (167.64 cm); Pain 5/10; 11:45 BP 206 / 94; Pulse 57; Resp 15; Pulse Ox 96% on R/A; vg1 11:55 BP 199 / 83; Pulse 54; Resp 12; Pulse Ox 97% on R/A; vg1 12:00 BP 206 / 83; Pulse 55; Resp 12; Pulse Ox 97% on R/A; vg1 12:10 BP 198 / 74; Pulse 54; Resp 15; Pulse Ox 96% on R/A; ap3 13:23 BP 194 / 84; Pulse 56; Pulse Ox 98% on R/A; ap3 11:22 Body Mass Index 27.44 (77.11 kg, 167.64 cm) ap3 ED Course: 11:21 Patient arrived in ED. vg1 11:22 Avelino Colindres PA is PHCP. sung 11:22 Clement Brown MD is Attending Physician. [facility] 11:22 Sheila Ly, RN is Primary Nurse. ap3 11:26 Triage completed. ap3 11:30 Arm band placed on right wrist. EKG completed in triage. Results shown to MD. ap3 11:30 Patient has correct armband on for positive identification. Placed in gown. Bed in low ap3 position. Call light in reach. Side rails up X2. chief operator on. Pulse ox on. NIBP on. Door closed. Noise minimized. 11:42 CT Head C Spine In Process Unspecified. EDMS 12:04 Inserted saline lock: 22 gauge in right antecubital area, using aseptic technique. vg1 14:55 No provider procedures requiring assistance completed. IV discontinued, intact, ap3 bleeding controlled, No redness/swelling at site. Pressure dressing applied. Administered Medications: 11:34 Not Given (Patient Refused): Tetanus-Diphtheria Toxoid Adult 0.5 ml IM once ap3 12:05 Drug: hydrALAZINE 5 mg {Note: Received VO from Bernadine LOU to administer 5 mg IVP x1.} vg1 Route: IVP; Site: right antecubital; 15:03 Follow up: Response: No adverse reaction ap3 Outcome: 13:59 Discharge ordered by . sung 15:02 Discharged to home via wheelchair. ap3 15:02 Condition: good 15:02 Discharge instructions given to patient, family, Instructed on discharge instructions, follow up and referral plans. Demonstrated understanding of instructions, follow-up care. 15:03 Patient left the ED. ap3 Signatures: Dispatcher [employer] EDMS Avelino Colindres PA PA jmm Prokisch, Amanda, RN RN ap3 Aury Vasquez RN RN vg1
--- NOTE | 2021-07-26 13:59 | EDPHYS ---
Physician Documentation [facility] Name: Samuel Oliva Age: 86 yrs Sex: Male : 1935 Arrival Date: 07/26/2021 Time: 11:21 Bed 5 Private MD: ED Physician Clement Brown HPI: 07/26 11:23 This 86 yrs old Male presents to ER via EMS with complaints of Fall Injury. jmm 11:23 Details of fall: The patient fell from an upright position. Onset: The symptoms/episode jmm began/occurred acutely, just prior to arrival. Associated injuries: The patient sustained injury to the head, laceration, of the forehead. 86-year-old male with history of coronary artery disease and hypertension the presents emerged department after a head injury which occurred just prior to arrival. Patient states he tripped on a curb hitting his forehead. Denies LOC, vomiting, behavior change. Patient is not up-to-date on tetanus immunization. Historical: - Allergies: 11:26 No Known Allergies; ap3 - PMHx: 11:26 Myocardial infarction; Hypertensive disorder; ap3 - Immunization history:: Adult Immunizations not immunized. - Social history:: Smoking status: Patient denies any tobacco usage or history of. ROS: 11:23 Constitutional: Negative for fever, chills, and weight loss, Cardiovascular: Negative jmm for chest pain, palpitations, and edema, Respiratory: Negative for shortness of breath, cough, wheezing, and pleuritic chest pain. 11:23 Skin: Positive for laceration(s). 11:23 All other systems are negative. Exam: 11:23 Constitutional: This is a well developed, well nourished patient who is awake, alert, jmm and in no acute distress. 11:23 Eyes: EOMI, no conjunctival erythema appreciated ENT: Moist Mucus Membranes 11:23 Chest/axilla: Normal chest wall appearance and motion. Cardiovascular: Regular rate and rhythm. No edema appreciated Respiratory: Normal respirations, no respiratory distress appreciated Abdomen/GI: Non distended, soft Back: Normal ROM Skin: General appearance color normal 11:23 Head/face: Noted is a laceration(s), .25 cm(s), of the forehead. 11:23 Neck: C-spine: appears grossly normal. 11:23 Musculoskeletal/extremity: ROM: intact in all extremities. 11:23 Skin: 0.25 cm laceration noted to the forehead. 11:23 Neuro: Orientation: is normal, Mentation: is normal, Memory: is normal. 11:23 Psych: Behavior/mood is pleasant, cooperative. Vital Signs: 11:22 BP 178 / 98; Pulse 62; Resp 17; Temp 97.8; Pulse Ox 99% ; Weight 77.11 kg; Height 5 ft. ap3 6 in. (167.64 cm); Pain 5/10; 11:45 BP 206 / 94; Pulse 57; Resp 15; Pulse Ox 96% on R/A; vg1 11:55 BP 199 / 83; Pulse 54; Resp 12; Pulse Ox 97% on R/A; vg1 12:00 BP 206 / 83; Pulse 55; Resp 12; Pulse Ox 97% on R/A; vg1 12:10 BP 198 / 74; Pulse 54; Resp 15; Pulse Ox 96% on R/A; ap3 13:23 BP 194 / 84; Pulse 56; Pulse Ox 98% on R/A; ap3 11:22 Body Mass Index 27.44 (77.11 kg, 167.64 cm) ap3 MDM: 11:31 Patient medically screened. [facility] 14:54 Data reviewed: vital signs, nurses notes. Counseling: I had a detailed discussion with sung the patient and/or guardian regarding: the historical points, exam findings, and any diagnostic results supporting the discharge/admit diagnosis, radiology results, the need for outpatient follow up, to return to the emergency department if symptoms worsen or persist or if there are any questions or concerns that arise at home. Refusal of service: The patient/guardian displays adequate decision making capability and despite a detailed discussion of alternatives, benefits, risks, and consequences refuses: Tetanus immunization. ED course: CT is negative. Patient given head injury return precautions and wound care precautions. Patient understood and agrees plan of care.. 07/26 11:23 Order name: CT Head C Spine; Complete Time: 12:[address] [facility] Administered Medications: 11:34 Not Given (Patient Refused): Tetanus-Diphtheria Toxoid Adult 0.5 ml IM once ap3 12:05 Drug: hydrALAZINE 5 mg {Note: Received VO from Bernadine LOU to administer 5 mg IVP x1.} vg1 Route: IVP; Site: right antecubital; 15:03 Follow up: Response: No adverse reaction ap3 Disposition Summary: 07/26/21 13:59 Discharge Ordered Location: Home [facility] Condition: Stable [facility] Diagnosis - Unspecified injury of head, initial encounter [facility] Followup: [facility] - With: Private Physician - When: 2 - 3 days - Reason: Recheck today's complaints, Continuance of care, Re-evaluation by your physician Discharge Instructions: - Discharge Summary Sheet jm - Head Injury, Adult jm - Nonsutured Laceration Care [facility] - Facial Laceration [facility] Forms: - Medication Reconciliation Form [facility] - Thank You Letter [facility] - Antibiotic Education [facility] - Prescription Opioid Use [facility] Addendum: 07/30/2021 18:19 Co-signature as Attending Physician, Clement Brown MD I agree with the assessment and c sanchez plan of care. Signatures: Dispatcher [employer] Clement Colby MD MD cha Mickail, Joel, PA PA jmm Prokisch, Amanda RN RN ap3 Aury Vasquez RN RN vg1
[2021-07-26 15:28] VITALS: TEMP 97.8
[2021-07-26 15:34] VITALS: BP 194/84; O2SAT 98
== END 2021-07-26 15:03 | disposition home or self-care (01) ==
LOC: ER 11:18
DX: S01.81XA Laceration without foreign body of other part of head, initial encounter (principal); W01.0XXA Fall on same level from slipping, tripping and stumbling without subsequent striking against object, initial encounter; I10 Essential (primary) hypertension; I25.2 Old myocardial infarction
CPT/HCPCS: 70450; 72125; 96374; 99284; J0360